=== PATIENT | female | born 1945 | race Caucasian/White ===

== ENCOUNTER 2019-03-12 13:53 | Inpatient (IN) | payer MEDICARE, OTHER ==
[2019-03-12] MEDS ORDERED: Clindamycin/D5W 900 mg/50 ml Premix Bag ONE (14:20)
[2019-03-12] MEDS ORDERED: Fentanyl 100 MCG/2 ML VIAL ONE (14:22)
[2019-03-12 14:49] LABS: Hemoglobin 11.2 g/dL (12.0-16.0); Mean Corpuscular HGB CONC 33.1 g/dL (32.0-36.0); Mean Corpuscular Hemoglobin 29.9 pg (27.0-31.0); Mean Corpuscular Volume 90.3 fL (78.0-98.0); Mean Platelet Volume 7.2 fL (7.4-10.4); Platelet Count 151 thou/uL (130-400); RBC Distribution Width 12.4 % (11.5-14.5); Red Blood Cell (RBC) Count 3.76 mill/uL (4.20-5.40); White Blood Cell (WBC) Count 11.6 thou/uL (4.8-10.8)
--- NOTE | 2019-03-12 15:05 | CT ---
EXAM: CT right ankle and foot PROVIDED CLINICAL HISTORY: Swelling FINDINGS: There is no evidence for fracture or other acute osseous abnormality. Alignment appears anatomic. Staci nt spaces appear preserved. Nonspecific reticulation of the subcutaneous adipose layer circumferentially about the foot. Correlate with concerns for cellulitis. Evaluation for abscess is l imited in the absence of IV contrast. IMPRESSION: No evidence for an acute osseous abnormality.
[2019-03-12 15:11] LABS: ALT (SGPT) 45 U/L (8-55); AST (SGOT) 39 U/L (5-34); Albumin 3.8 g/dL (3.4-4.8); Alkaline Phosphatase 132 U/L (40-150); Anion Gap 12 mmol/L (10-20); BUN (Urea Nitrogen) 9 mg/dL (9.8-20.1); Bilirubin, Total 0.5 mg/dL (0.2-1.2); Calc. Creatinine Clearance 0 mL/min (70-130); Calcium 9.5 mg/dL (7.8-10.44); Carbon Dioxide 26 mmol/L (23-31); Chloride 103 mmol/L (98-107); Estimated GFR-MDRD 78; Globulin 3.1 g/dL (2.4-3.5); Glucose 110 mg/dL (83-110); Potassium 3.6 mmol/L (3.5-5.1); Protein, Total 6.9 g/dL (6.0-8.3); Sodium 137 mmol/L (136-145)
[2019-03-12 15:13] LABS: Band 25 % (5-11); Lymphocytes 5 % (21-51); MDiff Complete? YES; Monocytes 6 % (0-10); Neutrophil 64 % (42-75); Platelet Morphology Comment Appears Adequate; RBC Morphology Normal
[2019-03-12 15:43] LABS: Bilirubin Negative (Negative); Blood, Urine Trace (Negative); Clarity Clear (Clear); Glucose, Urine (Dipstick) Normal (Negative); Leukocyte 75 Leu/uL (Negative); Mucous/LPF Rare LPF (<2+); Nitrite Negative (Negative); Protein, Urine (Dipstick) 20 mg/dL (Neg-Trace); RBC/HPF 0-3 HPF (0-3); Urobilinogen Normal mg/dL (Less than 2)
[2019-03-12 15:50] LABS: Bacteria/HPF Rare-Few HPF (None Seen)
[2019-03-12] MEDS ORDERED: Ondansetron PF 4 MG/2 ML Vial IVP PRN (16:40)
[2019-03-12] MEDS ORDERED: Sodium Chloride 0.9% 1,000 ML IV SCH (16:40)
[2019-03-12] MEDS ORDERED: Ondansetron ODT 4 MG TAB SL PRN (16:40)
[2019-03-12] MEDS ORDERED: Fentanyl 100 MCG/2 ML VIAL SLOW IVP PRN (16:41)
[2019-03-12] MEDS ORDERED: Ibuprofen 200 MG TAB PO SCH (20:45)
[2019-03-12] MEDS ORDERED: Acetaminophen 650 MG Suppository PR PRN (20:49)
[2019-03-12] MEDS: Morphine 2 MG/ML SYRINGE SLOW IVP PRN (21:07)
[2019-03-12] MEDS: Clindamycin/D5W 900 MG in Premix Bag 1 BAG IVPB SCH (21:10)
[2019-03-13] MEDS ORDERED: Sodium Chloride 0.9% 1,000 ML IV SCH ×3 (00:30→09:45)
[2019-03-13] MEDS: Piperacillin/Tazobactam 4.5 GM in Sodium Chloride 0.9% 100 ML IVPB SCH ×3 (01:28→16:22)
[2019-03-13] MEDS ORDERED: Vancomycin HCl 1 GM in Premix Bag 1 BAG IVPB SCH (02:00)
[2019-03-13] MEDS: traMADol HCl 50 MG TAB PO PRN ×4 (02:07→20:20)
[2019-03-13] MEDS: Sodium Chloride 0.9% 1,000 ML IV SCH ×2 (02:50→07:45)
--- NOTE | 2019-03-13 04:32 | HP ---
PRIMARY CARE DOCTOR: Dr. Jorgensen CODE STATUS: Full code. TIME OF EVALUATION: 8 p.m. CHIEF COMPLAINT: Pain in the right foot. HISTORY OF PRESENT ILLNESS: This is a 73 years old female patient with past medical history of no significant comorbidities other than arthritis. The patient came to the hospital after having severe right foot pain starting about a week ago and has been gradually getting worse with no clear triggers, no alleviating factors, associated with redness in the dorsal area of the right foot. The pain became so severe that she was unable to bear pressure. The patient has no significant excoriation or laceration of the skin in that area. REVIEW OF SYSTEMS: All other systems were reviewed and negative except for the findings mentioned above. PAST MEDICAL HISTORY: As mentioned in the HPI and no significant one. KNOWN ALLERGIES: Reaction to Goldvein. REPORTED MEDICATIONS: The patient takes no specific medications. FAMILY HISTORY: Reviewed and noncontributory for current presentation. PHYSICAL EXAMINATION: VITAL SIGNS: On presentation, blood pressure 118/61, heart rate 80, respiratory rate is 16, temperature 98.5, pain was 10/10, oxygen saturation was 99% on room air. GENERAL APPEARANCE: The patient is alert, oriented, no acute distress. HEENT: Eyes, normal conjunctivae. Moist oral mucosa. Anicteric. No JVD. RESPIRATORY: Bilateral air entry. No rales. No wheezes. Symmetric expansion. CARDIOVASCULAR: Normal rate, regular rhythm. No murmurs. No edema. ABDOMEN: Soft. Normal bowel sounds. MUSCULOSKELETAL: Baseline range of motion and strength except for the right lower extremity, the patient has severe pain being unable to walk. Symptoms started in the dorsal area of the right foot; however, it has extended to the right hip and there is also redness, tumefaction. SKIN: Warm and intact. No pallor. No rash. No redness except for the findings mentioned in the musculoskeletal. Capillary refill seems to be intact. NEURO: No evidence of any new focal weakness. Cranial nerves seems to be intact. PSYCH: The patient is in good mood. No anxiety. Optimal judgment. IMAGING STUDIES: Lower extremity CT showed no evidence of an acute osseus abnormality. Labs were reviewed. The patient has a white count of 11.6, hemoglobin 11.2, MCV 90.3, platelet count 151. Chemistry; sodium 137, potassium 3.6, chloride 103, anion gap 12, BUN 9, creatinine 0.73, GFR 78, glucose 110, lactic acid 0.9, calcium 9.5, total bilirubin 0.5, AST 39, ALT 45, alkaline phosphatase 132. C-reactive protein 20.25, serum total protein 6.9, albumin 3.8, globulin 3.1, albumin globulin ratio is 1.2. Urine was done and was positive with white count 7 to 10. ASSESSMENT AND PLAN: The patient will be placed in the hospital with following medical problems; 1. Right lower extremity cellulitis with redness, tenderness, decreased range of motion. The extremity is warm. The patient has been started on antibiotics. We will continue for now. We will monitor pain management. The patient is needing opioids for optimal control given the severity of pain. 2. Normocytic anemia, unclear etiology. Hemoglobin is 11, seems to be stable. We will monitor. No need for any acute intervention at this point. 3. Possible urinary tract infection. The patient has positive urine. The patient is receiving antibiotics. We will monitor cultures and treat accordingly. 4. History of arthritis. Reconcile home medications. 5. Deep venous thrombosis prophylaxis. Job ID: [id number]
[2019-03-13 05:19] LABS: Band 17 % (5-11); Hemoglobin 9.7 g/dL (12.0-16.0); Lymphocytes 9 % (21-51); MDiff Complete? YES; Mean Corpuscular HGB CONC 33.5 g/dL (32.0-36.0); Mean Corpuscular Hemoglobin 30.2 pg (27.0-31.0); Mean Corpuscular Volume 90.3 fL (78.0-98.0); Mean Platelet Volume 7.5 fL (7.4-10.4); Monocytes 5 % (0-10); Neutrophil 68 % (42-75); Platelet Count 127 thou/uL (130-400); Platelet Morphology Comment Appears Decreased; RBC Distribution Width 12.4 % (11.5-14.5); RBC Morphology Normal
[2019-03-13 05:29] LABS: Anion Gap 11 mmol/L (10-20); BUN (Urea Nitrogen) 9 mg/dL (9.8-20.1); Calc. Creatinine Clearance 70 mL/min (70-130); Calcium 8.1 mg/dL (7.8-10.44); Carbon Dioxide 23 mmol/L (23-31); Chloride 106 mmol/L (98-107); Estimated GFR-MDRD 78; Glucose 124 mg/dL (83-110); Potassium 3.2 mmol/L (3.5-5.1); Sodium 137 mmol/L (136-145)
[2019-03-13] MEDS: Clindamycin/D5W 900 MG in Premix Bag 1 BAG IVPB SCH ×2 (06:02→16:22)
[2019-03-13] MEDS ORDERED: Pharmacy to Dose 1 EACH VANCOMYCIN IVPB PRN (07:06)
[2019-03-13] MEDS: Morphine 2 MG/ML SYRINGE SLOW IVP PRN ×2 (07:43→14:08)
[2019-03-13] MEDS: Enoxaparin Sodium 40 MG/0.4 ML SYRINGE SC SCH (07:45)
[2019-03-13] MEDS ORDERED: Prevnar 13-Val Conj/PF 0.5 ML SYRINGE IM ONE (09:00)
[2019-03-13] MEDS ORDERED: Potassium Chloride 20 MEQ TAB PO SCH (09:00)
--- NOTE | 2019-03-13 09:26 | PRG ---
DATE OF SERVICE: 03/13/2019 SUBJECTIVE: The patient is seen and examined at bedside. She is hypotensive. Her systolic blood pressure is around 90. She received second bolus of IV fluids just now and she is positive for gram-positive cocci in 2/2 blood cultures. OBJECTIVE: VITAL SIGNS: Blood pressure is 90/58, pulse is 84, temperature is 98, respirations 16, and O2 saturation is 91% on room air. GENERAL: She looks palish. She complains about the right foot pain. HEENT: Her head is atraumatic and normocephalic. Eyes are PERRLA. Sclerae are nonicteric. Oral mucosa is slightly dry. NECK: Supple. LUNGS: Clear. HEART: S1 and S2 normal. No S3. No S4. ABDOMEN: Soft, nontender, and obese. EXTREMITIES: Right foot, the dorsal part is somewhat erythematous, swollen and very tender to touch. Also, she complains about the pain in the right hip area. NEUROLOGICAL: She follows my commands. She moves all 4 extremities. There is no any motor or sensory deficits. LABORATORY DATA: Labs showed white count of 11.0, hemoglobin 9.7, hematocrit 28.9, platelet count is 127,000, bands 17, down from 25. Sodium of 137, potassium 3.2, chloride 106, CO2 of 23, BUN 9, creatinine 0.73, glucose 124, and calcium 8.1. Microbiology, 2/2 blood cultures, gram-positive cocci. IMPRESSION AND PLAN: 1. Hypotension in the setting of positive blood cultures with gram-positive cocci. Hallucis suspicious for sepsis, most likely streptococcal from the right foot cellulitis as a source. We are going to move her to [facility], give her additional bolus of normal saline. Continue her antibiotics, which is vancomycin, Zosyn, and clindamycin for now. 2. Hypokalemia. We will replace that. 3. Normocytic anemia. 4. Possible urinary tract infection. We do not have cultures back yet. We will continue antibiotics for now. Job ID: [id number]
[2019-03-13 09:39] LABS: #Lymphocytes 0.7 thou/uL (1.20-3.40); #Monocytes 0.7 thou/uL (0.11-0.59); #Neutrophils 10.6 thou/uL (1.40-6.50); %Basophils 0.1 % (0.0-1.0); %Eosinophils 0.2 % (0.0-10.0); %Lymphocytes 5.9 % (21.0-51.0); %Monocytes 5.6 % (0.0-10.0); %Neutrophils 88.2 % (42.0-75.0); Hemoglobin 9.7 g/dL (12.0-16.0); Mean Corpuscular Hemoglobin 30.2 pg (27.0-31.0); Mean Corpuscular Volume 91.4 fL (78.0-98.0); Mean Platelet Volume 7.2 fL (7.4-10.4); Platelet Count 125 thou/uL (130-400); RBC Distribution Width 12.3 % (11.5-14.5); Red Blood Cell (RBC) Count 3.23 mill/uL (4.20-5.40); White Blood Cell (WBC) Count 12.1 thou/uL (4.8-10.8)
[2019-03-13] MEDS: Vancomycin HCl 1.5 GM in Sodium Chloride 0.9% 250 ML 300 ML IVPB SCH (13:01)
--- NOTE | 2019-03-13 14:56 | MRI ---
EXAM: MRI right foot with and without IV contrast PROVIDED CLINICAL HISTORY: Severe right foot pain and swelling COMPARISON: None FINDINGS: There is noncircumscribed fluid signal intensity within the subcutaneous adipose layer circumferentia lly about the foot, predominating at the dorsum of the foot and about the lateral malleolus of the ankle. There is no evidence for a focal, rim-enhancing fluid collection to suggest abscess. Regional marrow signal appears normal. No focal concerning regional muscular signal abnormality is ev ident. Alignment appears anatomic. Joint spaces appear preserved. No regional joint effusion is evident. No significant regional tenosynovial fluid. IMPRESSION: No MR evidence for osteomyelitis or focal fluid collection to suggest abscess.
[2019-03-13] MEDS: Acetaminophen 325 MG TAB PO PRN (20:30)
[2019-03-14] MEDS: Piperacillin/Tazobactam 4.5 GM in Sodium Chloride 0.9% 100 ML IVPB SCH ×3 (00:50→18:27)
[2019-03-14] MEDS: Vancomycin HCl 1.5 GM in Sodium Chloride 0.9% 250 ML 300 ML IVPB SCH ×2 (05:52→15:15)
[2019-03-14 06:05] LABS: #Eosinphils 0.1 thou/uL (0.0-0.7); #Lymphocytes 0.9 thou/uL (1.20-3.40); #Monocytes 0.8 thou/uL (0.11-0.59); #Neutrophils 11.9 thou/uL (1.40-6.50); %Basophils 0.1 % (0.0-1.0); %Eosinophils 0.4 % (0.0-10.0); %Lymphocytes 6.7 % (21.0-51.0); %Monocytes 5.5 % (0.0-10.0); %Neutrophils 87.2 % (42.0-75.0); Hemoglobin 9.9 g/dL (12.0-16.0); Mean Corpuscular HGB CONC 33.2 g/dL (32.0-36.0); Mean Corpuscular Hemoglobin 30.2 pg (27.0-31.0); Mean Corpuscular Volume 90.8 fL (78.0-98.0); Mean Platelet Volume 7.1 fL (7.4-10.4); Platelet Count 155 thou/uL (130-400); RBC Distribution Width 12.4 % (11.5-14.5); Red Blood Cell (RBC) Count 3.28 mill/uL (4.20-5.40); White Blood Cell (WBC) Count 13.7 thou/uL (4.8-10.8)
[2019-03-14] MEDS: Sodium Chloride 0.9% 1,000 ML IV SCH ×2 (06:07→21:00)
[2019-03-14 06:24] LABS: ALT (SGPT) 36 U/L (8-55); AST (SGOT) 24 U/L (5-34); Albumin 2.8 g/dL (3.4-4.8); Alkaline Phosphatase 173 U/L (40-150); Anion Gap 9 mmol/L (10-20); BUN (Urea Nitrogen) 8 mg/dL (9.8-20.1); Bilirubin, Total 0.9 mg/dL (0.2-1.2); Calc. Creatinine Clearance 75 mL/min (70-130); Calcium 8.3 mg/dL (7.8-10.44); Carbon Dioxide 23 mmol/L (23-31); Chloride 107 mmol/L (98-107); Estimated GFR-MDRD 84; Globulin 2.6 g/dL (2.4-3.5); Glucose 94 mg/dL (83-110); Potassium 3.4 mmol/L (3.5-5.1); Protein, Total 5.4 g/dL (6.0-8.3); Sodium 136 mmol/L (136-145)
--- NOTE | 2019-03-14 07:29 | PDOC.HOSPP ---
- Subjective Encounter Date: 03/14/19 Encounter Time: 07:27 Subjective: no fever, chills. pain decreased in foot - Objective Vital Signs & Weight: Vital Signs (12 hours) Temp Pulse Ox 03/14/19 07:24 97.5 F L 03/14/19 04:00 97.9 F 03/14/19 00:36 98.1 F 03/13/19 20:00 100.2 F H 90 L Weight Weight 145 lb 15.136 oz Most Recent Monitor Data Heart Rate from ECG 90 NIBP 106/55 NIBP BP-Mean 72 Respiration from ECG 27 SpO2 99 I&O: 03/13/19 03/14/19 03/15/19 06:59 06:59 06:59 Intake Total 2090 Output Total 625 Balance 1465 Result Diagrams: 03/14/19 05:51 03/14/19 05:51 Hospitalist ROS - Medication Medications: Active Medications Generic Name Dose Route Start Last Admin Trade Name Freq PRN Reason Stop Dose Admin Acetaminophen 650 mg 03/12/19 20:49 03/13/19 20:30 Tylenol PO 650 mg Q4H PRN Administration Headache/Fever/Mild Pain (1-3) Enoxaparin Sodium 40 mg 03/13/19 09:00 03/13/19 07:45 Lovenox SC 40 mg 0900 LENORA Administration Piperacillin Sod/Tazobactam 100 mls @ 200 mls/hr 03/13/19 01:00 03/14/19 00: 50 Sod 4.5 gm/ Sodium Chloride IVPB 100 mls 0100,0900,1700 LENORA Administration Sodium Chloride 1,000 mls @ 100 mls/hr 03/13/19 02:15 03/14/19 06:07 Normal Saline 0.9% IV 1,000 mls .Q10H LENORA Administration Vancomycin HCl 1.5 gm/ Sodium 300 mls @ 200 mls/hr 03/13/19 14:00 03/14/19 05 :52 Chloride IVPB Not Given 0200,1400 LENORA Morphine Sulfate 2 mg 03/12/19 20:30 03/13/19 14:08 Morphine SLOW IVP 2 mg Q4H PRN Administration Moderate to Severe Pain (6-10) Sertraline HCl 100 mg 03/12/19 21:00 03/13/19 20:20 Zoloft PO 100 mg HS LENORA Administration Sodium Chloride 10 ml 03/12/19 21:00 03/13/19 20:21 Flush - Normal Saline IVF 10 ml Q12HR LENORA Administration Tramadol HCl 50 mg 03/12/19 20:31 03/13/19 20:20 Ultram PO 50 mg Q6H PRN Administration Mild-Moderate Pain (1-5) - Exam Neck: no JVD Heart: RRR, no murmur Respiratory: CTAB, no wheezes, no rales Gastrointestinal: soft, non-tender, normal bowel sounds Extremities: no edema Extremities - other findings: erythema, warmth R foot Hosp A/P (1) Bacteremia due to Gram-positive bacteria Code(s): R78.81 - BACTEREMIA Status: Acute (2) Cellulitis Code(s): L03.90 - CELLULITIS, UNSPECIFIED Status: Acute Qualifiers: Site of cellulitis: extremity Site of cellulitis of extremity: lower extremity Laterality: right Qualified Code(s): L03.115 - Cellulitis of right lower limb (3) Hypotension Status: Acute Qualifiers: Hypotension type: unspecified hypotension type Qualified Code(s): I95.9 - Hypotension, unspecified (4) Hypokalemia Code(s): E87.6 - HYPOKALEMIA Status: Acute - Plan cont. broad spectrum antibx pendinng sensitivities cont iv fluids relace K+
[2019-03-14] MEDS ORDERED: Potassium Chloride 20 MEQ TAB PO SCH (07:45)
[2019-03-14] MEDS: Enoxaparin Sodium 40 MG/0.4 ML SYRINGE SC SCH (08:44)
[2019-03-14] MEDS: traMADol HCl 50 MG TAB PO PRN ×3 (08:45→20:56)
[2019-03-14 13:42] LABS: Vancomycin, Trough 15.6 ug/mL
--- NOTE | 2019-03-14 22:37 | RAD ---
Exam: Chest one view HISTORY:Dyspnea Comparison: 10/04/2010 FINDINGS: Cardiac silhouette: Normal Aorta: Unremarkable Pulmonary vessels: Normal Costophrenic angles: Obscuration left hemidiaphragm likely due to left-sided pleural effusion LUNGS: Multi focal interstitial and alveolar infiltrates. Pneumothorax: None Osseous abnormalities: None IMPRESSION: 1. Pleural and parenchymal changes left lung base. 2. Multifocal interstitial and alveolar infiltrates which may be due to edema, aspiration or multilob ar pneumonia. Continued surveillance is recommended. Transcribed Date/Time: 03/14/2019 11:04 PM
[2019-03-14] MEDS ORDERED: Furosemide 40 MG/4 ML VIAL SLOW IVP SCH (22:45)
[2019-03-14] MEDS: Acetaminophen 325 MG TAB PO PRN (23:07)
[2019-03-15] MEDS: Piperacillin/Tazobactam 4.5 GM in Sodium Chloride 0.9% 100 ML IVPB SCH ×3 (01:58→17:32)
[2019-03-15] MEDS: Vancomycin HCl 1.5 GM in Sodium Chloride 0.9% 250 ML 300 ML IVPB SCH ×2 (02:39→13:43)
[2019-03-15] MEDS: traMADol HCl 50 MG TAB PO PRN (02:40)
[2019-03-15 05:05] LABS: Anion Gap 12 mmol/L (10-20); BUN (Urea Nitrogen) 6 mg/dL (9.8-20.1); Calc. Creatinine Clearance 80 mL/min (70-130); Calcium 8.7 mg/dL (7.8-10.44); Carbon Dioxide 23 mmol/L (23-31); Chloride 106 mmol/L (98-107); Estimated GFR-MDRD 84; Glucose 108 mg/dL (83-110); Potassium 3.9 mmol/L (3.5-5.1); Sodium 137 mmol/L (136-145)
[2019-03-15] MEDS: Enoxaparin Sodium 40 MG/0.4 ML SYRINGE SC SCH (09:02)
--- NOTE | 2019-03-15 09:16 | PDOC.HOSPP ---
- Subjective Encounter Date: 03/15/19 Encounter Time: 09:07 Subjective: acute sob last PM, on O2 , tachypneic - Objective Vital Signs & Weight: Vital Signs (12 hours) Temp Pulse Ox 03/15/19 08:05 93 L 03/15/19 04:00 95 03/15/19 00:00 98.4 F 92 L Weight Weight 156 lb 12.8 oz Most Recent Monitor Data Heart Rate from ECG 97 NIBP 95/66 NIBP BP-Mean 75 Respiration from ECG 27 SpO2 90 I&O: 03/14/19 03/15/19 03/16/19 06:59 06:59 06:59 Intake Total 1973 2155 Output Total 400 1655 Balance 1573 500 Result Diagrams: 03/14/19 05:51 03/15/19 04:19 Radiology Reviewed by me: Yes (cxr- pulmonary edema) Hospitalist ROS - Medication Medications: Active Medications Generic Name Dose Route Start Last Admin Trade Name Freq PRN Reason Stop Dose Admin Acetaminophen 650 mg 03/12/19 20:49 03/14/19 23:07 Tylenol PO 650 mg Q4H PRN Administration Headache/Fever/Mild Pain (1-3) Enoxaparin Sodium 40 mg 03/13/19 09:00 03/15/19 09:02 Lovenox SC 40 mg 0900 LENORA Administration Piperacillin Sod/Tazobactam 100 mls @ 200 mls/hr 03/13/19 01:00 03/15/19 09: 02 Sod 4.5 gm/ Sodium Chloride IVPB 100 mls 0100,0900,1700 LENORA Administration Vancomycin HCl 1.5 gm/ Sodium 300 mls @ 200 mls/hr 03/13/19 14:00 03/15/19 02 :39 Chloride IVPB 300 mls 0200,1400 LENORA Administration Morphine Sulfate 2 mg 03/12/19 20:30 03/13/19 14:08 Morphine SLOW IVP 2 mg Q4H PRN Administration Moderate to Severe Pain (6-10) Sertraline HCl 100 mg 03/12/19 21:00 03/14/19 20:58 Zoloft PO 100 mg HS LENORA Administration Sodium Chloride 10 ml 03/12/19 21:00 03/15/19 09:02 Flush - Normal Saline IVF 10 ml Q12HR LENORA Administration Tramadol HCl 50 mg 03/12/19 20:31 03/15/19 02:40 Ultram PO 50 mg Q6H PRN Administration Mild-Moderate Pain (1-5) - Exam General Appearance: awake alert Neck: no JVD Heart: RRR Respiratory: rales Respiratory - other findings: diffuse rales Gastrointestinal: soft, normal bowel sounds Extremities: no edema Hosp A/P (1) Acute pulmonary edema Code(s): J81.0 - ACUTE PULMONARY EDEMA Status: Acute (2) Acute respiratory failure with hypoxemia Code(s): J96.01 - ACUTE RESPIRATORY FAILURE WITH HYPOXIA Status: Acute (3) Bacteremia due to Gram-positive bacteria Code(s): R78.81 - BACTEREMIA Status: Acute (4) Cellulitis Code(s): L03.90 - CELLULITIS, UNSPECIFIED Status: Acute Qualifiers: Site of cellulitis: extremity Site of cellulitis of extremity: lower extremity Laterality: right Qualified Code(s): L03.115 - Cellulitis of right lower limb (5) Hypotension Status: Acute Qualifiers: Hypotension type: unspecified hypotension type Qualified Code(s): I95.9 - Hypotension, unspecified (6) Hypokalemia Code(s): E87.6 - HYPOKALEMIA Status: Acute - Plan lasix 40 ivp q 12h; strict I&O, DC iv saline, ECHo patient with no hx heart disease, received large saline load for sepsis. now with acute sob, hypxemia. pt is on broad spectrum antibx
[2019-03-15] MEDS: Polyethylene Glycol 3350 17 GM Packet PO PRN (13:43)
[2019-03-15] MEDS: Furosemide 40 MG/4 ML VIAL SLOW IVP SCH (13:43)
--- NOTE | 2019-03-15 14:36 | CON ---
DATE OF CONSULTATION: 03/15/2019 HISTORY OF PRESENT ILLNESS: Ms. Ann is a 73-year-old female, who started having a right foot pain that progressed to a point where it was intolerable. She said the pain radiated all the way up to her hip. She was admitted with erythema of her foot, felt to be cellulitis. There is still a sharpie caty where the erythema used to be. This has resolved. She was transferred to the intermediate care unit because of hypoxemia. PAST MEDICAL HISTORY: Remarkable only for arthritis. SOCIAL HISTORY: She is a nonsmoker and nondrinker. ALLERGIES: SHE REPORTS ALLERGIES TO [facility]. MEDICATIONS: Prior to admission none. FAMILY HISTORY: Negative for lung disease in early age. REVIEW OF SYSTEMS: 10 point review of systems completed, otherwise negative. PHYSICAL EXAMINATION: GENERAL: She is in no distress. She had face mask oxygen on. VITAL SIGNS: Blood pressure 120/66, heart rate 89, respiratory rates in the teens, oximetry is 97% on 50% face mask. HEENT: Pupils are equal. Sclerae are anicteric. Nose and throat were clear. NECK: Supple. LUNGS: Clear. HEART: Regular rhythm. S1 and S2 are normal. ABDOMEN: Soft and nontender. EXTREMITIES: Without clubbing, cyanosis, or edema. LABORATORY DATA: White count is 11.6 on admission with 25% bands. No manual differential has been done since . No CBC today. Sodium 137, potassium 3.9 , chloride 106, bicarb 23, BUN 6, creatinine 0.68. No blood gas has been done. Chest x-ray shows diffuse interstitial alveolar infiltrates. IMPRESSION: Acute respiratory distress syndrome associated with cellulitis. I am surprised she did not have respiratory distress on admission. She has normal left ventricular systolic function by echocardiogram, which is arguing that this cellulitis has led to noncardiogenic pulmonary edema. She will have a Russell placed today and will be given Lasix and will be watched closely. I doubt her pulmonary abnormalities are secondary to pneumonia. We will follow with the other physicians caring for. I would be worried about necrotizing fasciitis, given the pain on presentation, but given her dramatic clinical improvement, I strongly argues against having her underlying necrotizing fasciitis. This is a 70 minute consult, with greater than 50% of time spent on unit coordinating care. Job ID: [id number] [facility]
--- NOTE | 2019-03-15 14:45 | PDOC.EVN ---
Event Note - Event Note Event Note: ECHO- nl LVEF. sob improved with diuresis. rpt cxr in AM
[2019-03-15] MEDS: Bisacodyl 10 MG SUPP PR PRN (15:02)
[2019-03-16] MEDS: Piperacillin/Tazobactam 4.5 GM in Sodium Chloride 0.9% 100 ML IVPB SCH ×2 (00:22→08:53)
[2019-03-16] MEDS: ALPRAZolam 0.25 MG TAB PO PRN ×2 (00:22→21:32)
[2019-03-16] MEDS: Vancomycin HCl 1.5 GM in Sodium Chloride 0.9% 250 ML 300 ML IVPB SCH (02:08)
[2019-03-16] MEDS: Furosemide 40 MG/4 ML VIAL SLOW IVP SCH ×2 (05:48→14:49)
--- NOTE | 2019-03-16 07:46 | RAD ---
CHEST 1 VIEW: INDICATION: Followup CHF. COMPARISON: Prior exam dated 03/14/2019. FINDINGS: There is some improvement in perihilar airspace opacities likely reflecting some improvement in edema . Bilateral pleural effusions, cardiomegaly, and pulmonary vascular congestion persist, however. No pneumothorax is evident. Osseous structures are unchanged. IMPRESSION: Mild improvement in central edema pattern. Continued followup is recommended. POS: BH
--- NOTE | 2019-03-16 08:48 | PRG ---
DATE OF SERVICE: 03/16/2019 SUBJECTIVE: Adela Ann has no new complaints. OBJECTIVE: VITAL SIGNS: Heart rate is in 80s, blood pressure 116/55, and oximetry is 95% on face mask. LUNGS: Remarkable for fine crackles at her bases. HEART: Regular rhythm. ABDOMEN: Soft with mild tenderness in the left lower quadrant. EXTREMITIES: Without clubbing, cyanosis, or edema. Apparently, she has not had a bowel movement in several days. She did not respond to a laxative yesterday, so I recommended that she get an enema today. Chest radiograph done today still shows diffuse infiltrates, they have not changed much. IMPRESSION AND PLAN: Adult respiratory distress syndrome with cellulitis. She is clinically stable. Her anxiety has prevented weaning to a nasal cannula. She likes having the face mask air. She does have a dilated left atrium and moderate mitral regurgitation, which may be contributing to her radiographic findings. Intake and output are negative 1311. I would recommend repeating a chest x-ray in the morning. She has Lasix ordered again this morning. She will continue with broad antimicrobial coverage. Her erythema of her foot has improved dramatically based on the lines that were drawn, that were marking the margins of her cellulitis. Job ID: [id number]
[2019-03-16] MEDS: Bisacodyl 10 MG SUPP PR PRN (08:52)
[2019-03-16] MEDS: Enoxaparin Sodium 40 MG/0.4 ML SYRINGE SC SCH (08:53)
--- NOTE | 2019-03-16 10:40 | PDOC.HOSPP ---
- Subjective Encounter Date: 03/16/19 Encounter Time: 10:38 Subjective: less sob - Objective Vital Signs & Weight: Vital Signs (12 hours) Temp Pulse Ox 03/16/19 07:46 98 03/16/19 07:33 97.4 F L 03/16/19 07:15 95 03/16/19 04:00 98.6 F 03/16/19 00:00 99.0 F Weight Weight 156 lb 12.8 oz Most Recent Monitor Data Heart Rate from ECG 90 NIBP 110/66 NIBP BP-Mean 80 Respiration from ECG 22 SpO2 92 I&O: 03/15/19 03/16/19 03/17/19 06:59 06:59 06:59 Intake Total 2155 1304 120 Output Total 1655 2615 Balance 500 -1311 120 Result Diagrams: 03/14/19 05:51 03/15/19 04:19 Radiology Reviewed by me: Yes (cxr- pulmonary edema, mildly improved) Hospitalist ROS - Medication Medications: Active Medications Generic Name Dose Route Start Last Admin Trade Name Freq PRN Reason Stop Dose Admin Acetaminophen 650 mg 03/12/19 20:49 03/14/19 23:07 Tylenol PO 650 mg Q4H PRN Administration Headache/Fever/Mild Pain (1-3) Alprazolam 0.25 mg 03/12/19 20:19 03/16/19 00:22 Xanax PO 0.25 mg DAILYPRN PRN Administration Anxiety Bisacodyl 10 mg 03/15/19 14:41 03/16/19 08:52 Dulcolax AR 10 mg DAILYPRN PRN Administration Constipation Enoxaparin Sodium 40 mg 03/13/19 09:00 03/16/19 08:53 Lovenox SC 40 mg 0900 LENORA Administration Furosemide 40 mg 03/15/19 14:00 03/16/19 05:48 Lasix SLOW IVP 40 mg 0600,1400 LENORA Administration Piperacillin Sod/Tazobactam 100 mls @ 200 mls/hr 03/13/19 01:00 03/16/19 08: 53 Sod 4.5 gm/ Sodium Chloride IVPB 100 mls 0100,0900,1700 LENORA Administration Vancomycin HCl 1.5 gm/ Sodium 300 mls @ 200 mls/hr 03/13/19 14:00 03/16/19 02 :08 Chloride IVPB 300 mls 0200,1400 LENORA Administration Morphine Sulfate 2 mg 03/12/19 20:30 03/13/19 14:08 Morphine SLOW IVP 2 mg Q4H PRN Administration Moderate to Severe Pain (6-10) Polyethylene Glycol 17 gm 03/15/19 13:23 03/15/19 13:43 Miralax PO 17 gm DAILYPRN PRN Administration CONSTIPATION Sertraline HCl 100 mg 03/12/19 21:00 03/15/19 21:20 Zoloft PO 100 mg HS LENORA Administration Sodium Chloride 10 ml 03/12/19 21:00 03/16/19 09:03 Flush - Normal Saline IVF 10 ml Q12HR LENORA Administration Tramadol HCl 50 mg 03/12/19 20:31 03/15/19 02:40 Ultram PO 50 mg Q6H PRN Administration Mild-Moderate Pain (1-5) - Exam Neck: no JVD Heart: RRR, no murmur Respiratory - other findings: post rales Gastrointestinal: soft, normal bowel sounds Extremities: no edema Skin - other findings: marked improvement in RLE cellulitis Hosp A/P (1) Acute pulmonary edema Code(s): J81.0 - ACUTE PULMONARY EDEMA Status: Acute (2) Acute respiratory failure with hypoxemia Code(s): J96.01 - ACUTE RESPIRATORY FAILURE WITH HYPOXIA Status: Acute (3) Bacteremia due to Gram-positive bacteria Code(s): R78.81 - BACTEREMIA Status: Acute (4) Cellulitis Code(s): L03.90 - CELLULITIS, UNSPECIFIED Status: Acute Qualifiers: Site of cellulitis: extremity Site of cellulitis of extremity: lower extremity Laterality: right Qualified Code(s): L03.115 - Cellulitis of right lower limb (5) Hypotension Status: Acute Qualifiers: Hypotension type: unspecified hypotension type Qualified Code(s): I95.9 - Hypotension, unspecified (6) Hypokalemia Code(s): E87.6 - HYPOKALEMIA Status: Acute - Plan lasix 40 ivp q 12h;. pt is on broad spectrum antibx, trasition to iv cephtriaxone ECHO- Nl LVEF
[2019-03-16 11:10] LABS: Actual Bicarbonate (HCO3a) 32.1 mEq/L (22-28); Base Excess (BEa) 7.5 mEq/L (-2.0 to +3.0); CO2 Tension 45.9 mmHg (35.0-45.0); Calcium, Ionized 1.15 mmol/L (1.12-1.30); Carboxyhemoglobin (COHb) 0.5 gm% (0.0-3.0); Hemoglobin (Hb) 10.6 g/dL (12.0-16.0); O2 Tension (PaO2) 77.5 mmHg (> 70.0); Potassium - ABG Lab 2.44 mmol/L (3.70-5.30); pH, Arterial 7.46 (7.35-7.45)
[2019-03-16 11:11] LABS: ALV-art Gradient 150.325 (0-20); Puncture Site LB
[2019-03-16] MEDS: cefTRIAXone\\ROCEPHIN 2 GM in Sodium Chloride 0.9% 100 ML IVPB SCH (11:19)
[2019-03-17] MEDS: Morphine 2 MG/ML SYRINGE SLOW IVP PRN (00:03)
[2019-03-17] MEDS: Acetaminophen 325 MG TAB PO PRN ×2 (01:28→20:10)
[2019-03-17] MEDS: Furosemide 40 MG/4 ML VIAL SLOW IVP SCH ×2 (06:15→13:04)
[2019-03-17] MEDS: Enoxaparin Sodium 40 MG/0.4 ML SYRINGE SC SCH (08:48)
--- NOTE | 2019-03-17 09:18 | RAD ---
CHEST 1 VIEW: HISTORY: Shortness of breath. COMPARISON: 03/16/2019 exam. FINDINGS: Heart size appears slightly enlarged. The pulmonary edema changes show improvement. There is still persistent increased density in the bases suggesting effusions. There are some slightly asymmetric right upper lobe parenchymal changes. This may just be the resolving edema. IMPRESSION: Cardiomegaly with resolving interstitial alveolar lung changes suggesting improving edema. Continued followup is recommended. POS: ENMAN[facility]EL
[2019-03-17] MEDS: traMADol HCl 50 MG TAB PO PRN ×2 (10:12→18:45)
--- NOTE | 2019-03-17 10:18 | PDOC.HOSPP ---
- Subjective Encounter Date: 03/17/19 Encounter Time: 10:17 Subjective: uncomfortable, tired of bed - Objective Vital Signs & Weight: Vital Signs (12 hours) Temp Pulse Ox 03/17/19 08:00 99.2 F 03/17/19 07:56 98 03/17/19 06:50 98.7 F 03/17/19 06:32 91 L 03/17/19 03:31 97.2 F L 03/17/19 02:26 93 L 03/16/19 22:46 97.9 F Weight Weight 156 lb 12.8 oz Most Recent Monitor Data Heart Rate from ECG 86 NIBP 108/53 NIBP BP-Mean 71 Respiration from ECG 35 SpO2 99 I&O: 03/16/19 03/17/19 03/18/19 06:59 06:59 06:59 Intake Total 1304 1368 240 Output Total 3842 4160 Balance -0160 -7076 240 Result Diagrams: 03/14/19 05:51 03/15/19 04:19 Radiology Reviewed by me: Yes (cxr-significant clearing of edema) Hospitalist ROS - Medication Medications: Active Medications Generic Name Dose Route Start Last Admin Trade Name Freq PRN Reason Stop Dose Admin Acetaminophen 650 mg 03/12/19 20:49 03/17/19 01:28 Tylenol PO 650 mg Q4H PRN Administration Headache/Fever/Mild Pain (1-3) Alprazolam 0.25 mg 03/12/19 20:19 03/16/19 21:32 Xanax PO 0.25 mg DAILYPRN PRN Administration Anxiety Bisacodyl 10 mg 03/15/19 14:41 03/16/19 08:52 Dulcolax DC 10 mg DAILYPRN PRN Administration Constipation Enoxaparin Sodium 40 mg 03/13/19 09:00 03/17/19 08:48 Lovenox SC 40 mg 0900 LENORA Administration Furosemide 40 mg 03/15/19 14:00 03/17/19 06:15 Lasix SLOW IVP 40 mg 0600,1400 LENORA Administration Ceftriaxone Sodium 2 gm/ 100 mls @ 200 mls/hr 03/16/19 11:00 03/16/19 11:19 Sodium Chloride IVPB 100 mls Q24HR LENORA Administration Morphine Sulfate 2 mg 03/12/19 20:30 03/17/19 00:03 Morphine SLOW IVP 2 mg Q4H PRN Administration Moderate to Severe Pain (6-10) Polyethylene Glycol 17 gm 03/15/19 13:23 03/15/19 13:43 Miralax PO 17 gm DAILYPRN PRN Administration CONSTIPATION Sertraline HCl 100 mg 03/12/19 21:00 03/16/19 20:06 Zoloft PO 100 mg HS LENORA Administration Sodium Chloride 10 ml 03/12/19 21:00 03/17/19 08:49 Flush - Normal Saline IVF 10 ml Q12HR LENORA Administration Tramadol HCl 50 mg 03/12/19 20:31 03/17/19 10:12 Ultram PO 50 mg Q6H PRN Administration Mild-Moderate Pain (1-5) - Exam General Appearance: awake alert Neck: no JVD Heart: RRR Respiratory - other findings: post basilar rales Gastrointestinal: soft, normal bowel sounds Extremities: 1+ LE edema Hosp A/P (1) Acute pulmonary edema Code(s): J81.0 - ACUTE PULMONARY EDEMA Status: Acute (2) Acute respiratory failure with hypoxemia Code(s): J96.01 - ACUTE RESPIRATORY FAILURE WITH HYPOXIA Status: Acute (3) Bacteremia due to Gram-positive bacteria Code(s): R78.81 - BACTEREMIA Status: Acute (4) Cellulitis Code(s): L03.90 - CELLULITIS, UNSPECIFIED Status: Acute Qualifiers: Site of cellulitis: extremity Site of cellulitis of extremity: lower extremity Laterality: right Qualified Code(s): L03.115 - Cellulitis of right lower limb (5) Hypotension Status: Resolved Qualifiers: Hypotension type: unspecified hypotension type Qualified Code(s): I95.9 - Hypotension, unspecified (6) Hypokalemia Code(s): E87.6 - HYPOKALEMIA Status: Resolved - Plan lasix 40 ivp q 12h;. rpt cxr in 2 days move to [facility] cont iv antibs rpt CBC, CMP
[2019-03-17] MEDS: cefTRIAXone\\ROCEPHIN 2 GM in Sodium Chloride 0.9% 100 ML IVPB SCH (10:28)
[2019-03-17 11:53] LABS: #Eosinphils 0.1 thou/uL (0.0-0.7); #Lymphocytes 1.1 thou/uL (1.20-3.40); #Monocytes 0.8 thou/uL (0.11-0.59); #Neutrophils 8.6 thou/uL (1.40-6.50); %Basophils 0.1 % (0.0-1.0); %Eosinophils 1.4 % (0.0-10.0); %Lymphocytes 9.9 % (21.0-51.0); %Monocytes 7.3 % (0.0-10.0); %Neutrophils 81.3 % (42.0-75.0); Hemoglobin 10.7 g/dL (12.0-16.0); Mean Corpuscular Hemoglobin 29.4 pg (27.0-31.0); Mean Corpuscular Volume 89.2 fL (78.0-98.0); Mean Platelet Volume 6.2 fL (7.4-10.4); Platelet Count 286 thou/uL (130-400); RBC Distribution Width 12.6 % (11.5-14.5); Red Blood Cell (RBC) Count 3.64 mill/uL (4.20-5.40); White Blood Cell (WBC) Count 10.6 thou/uL (4.8-10.8)
[2019-03-17 12:16] LABS: ALT (SGPT) 19 U/L (8-55); AST (SGOT) 23 U/L (5-34); Albumin 2.8 g/dL (3.4-4.8); Alkaline Phosphatase 252 U/L (40-110); Anion Gap 13 mmol/L (10-20); BUN (Urea Nitrogen) 11 mg/dL (9.8-20.1); Bilirubin, Total 0.3 mg/dL (0.2-1.2); Calc. Creatinine Clearance 74 mL/min (70-130); Calcium 9.1 mg/dL (7.8-10.44); Carbon Dioxide 37 mmol/L (23-31); Chloride 91 mmol/L (98-107); Estimated GFR-MDRD 77; Globulin 3.4 g/dL (2.4-3.5); Glucose 121 mg/dL (83-110); Protein, Total 6.2 g/dL (6.0-8.3); Sodium 138 mmol/L (136-145)
[2019-03-17 12:21] LABS: Potassium 2.6 mmol/L (3.5-5.1)
[2019-03-17] MEDS ORDERED: Potassium Chloride 20 MEQ TAB PO SCH ×2 (13:00→21:45)
--- NOTE | 2019-03-17 18:03 | PRG ---
DATE OF SERVICE: 03/17/2019 SUBJECTIVE: Ms. Ann did well overnight. She has no complaints. OBJECTIVE: VITAL SIGNS: She is afebrile. Heart rate is 93, respiratory rate is 20, oximetry is 94, and blood pressure 115/54. LUNGS: Clear. HEART: Regular rhythm. ABDOMEN: Soft. LABORATORY DATA: White count 10.6, hemoglobin 10.7, and platelets 286,000. Sodium 138, potassium 3.6, chloride 91, bicarb 37, BUN 11, creatinine 0.74, and glucose 121. IMPRESSION AND PLAN: Cellulitis with adult respiratory distress syndrome, clinically improving. Today's chest radiograph has dramatically improved. She continues broad antimicrobial therapy. She is stable to move out of the intermediate care unit. We will sign off. Job ID: [id number]
[2019-03-17 21:03] LABS: Actual Bicarbonate (HCO3a) 36.8 mEq/L (22-28); Base Excess (BEa) 12.6 mEq/L (-2.0 to +3.0); CO2 Tension 45.6 mmHg (35.0-45.0); Calcium, Ionized 1.11 mmol/L (1.12-1.30); Carboxyhemoglobin (COHb) 0.8 gm% (0.0-3.0); Potassium - ABG Lab 2.73 mmol/L (3.70-5.30); pH, Arterial 7.53 (7.35-7.45)
[2019-03-17 21:05] LABS: O2 Tension (PaO2) 53.5 mmHg (> 70.0)
[2019-03-17] MEDS ORDERED: Potassium Chloride 40 MEQ in Sodium Chloride 0.9% 250 ML 250 ML IVPB SCH (21:45)
[2019-03-18] MEDS: traMADol HCl 50 MG TAB PO PRN ×4 (02:41→23:06)
[2019-03-18] MEDS: ALPRAZolam 0.25 MG TAB PO PRN (03:50)
[2019-03-18 06:00] LABS: Albumin 2.9 g/dL (3.4-4.8); Anion Gap 15 mmol/L (10-20); BUN (Urea Nitrogen) 12 mg/dL (9.8-20.1); BUN/Creatinine Ratio 17.65; Calc. Creatinine Clearance 80 mL/min (70-130); Carbon Dioxide 33 mmol/L (23-31); Chloride 97 mmol/L (98-107); Estimated GFR-MDRD 84; Glucose 105 mg/dL (83-110); Magnesium 1.6 mg/dL (1.6-2.6); Phosphorus 3.3 mg/dL (2.3-4.7); Potassium 3.5 mmol/L (3.5-5.1); Sodium 141 mmol/L (136-145)
[2019-03-18] MEDS ORDERED: Magnesium 2 GM/50 ML 2 GM in Premix Bag 1 BAG IVPB SCH (06:45)
[2019-03-18] MEDS ORDERED: Potassium Chloride 20 MEQ TAB PO SCH (09:00)
[2019-03-18] MEDS: Enoxaparin Sodium 40 MG/0.4 ML SYRINGE SC SCH (09:39)
[2019-03-18] MEDS: Furosemide 40 MG/4 ML VIAL SLOW IVP SCH (09:40)
[2019-03-18] MEDS: cefTRIAXone\\ROCEPHIN 2 GM in Sodium Chloride 0.9% 100 ML IVPB SCH (11:58)
[2019-03-18] MEDS ORDERED: Ketorolac Tromethamine 30 MG/ML VIAL IVP SCH (12:15)
--- NOTE | 2019-03-18 19:10 | PDOC.HOSPP ---
- Subjective Encounter Date: 03/18/19 Subjective: report pain to the right leg, that was there prior to admission and persists; tolerating oral intake; no events overnight - Objective Vital Signs & Weight: Vital Signs (12 hours) Temp Pulse Resp BP Pulse Ox 03/18/19 18:28 94 18 96 03/18/19 14:53 99.1 F 95 28 H 111/54 L 97 03/18/19 14:42 91 28 H 96 03/18/19 12:17 98.7 F 92 24 H 117/56 L 95 03/18/19 11:47 93 L 03/18/19 10:49 90 20 92 L Weight Weight 156 lb 12.8 oz Most Recent Monitor Data Heart Rate from ECG 87 NIBP 123/59 NIBP BP-Mean 80 Respiration from ECG 35 SpO2 98 I&O: 03/17/19 03/18/19 03/19/19 06:59 06:59 06:59 Intake Total 1368 1120 940 Output Total 3550 2300 1650 Balance -2182 -1180 -710 Result Diagrams: 03/17/19 11:47 03/18/19 04:54 Additional Labs: Accuchecks 03/18/19 03/17/19 16:54 20:11 POC Glucose 120 H 154 H Hospitalist ROS - Review of Systems Constitutional: denies: fever, chills Respiratory: denies: shortness of breath Gastrointestinal: denies: abdominal pain Musculoskeletal: reports: leg pain - Medication Medications: Active Medications Generic Name Dose Route Start Last Admin Trade Name Freq PRN Reason Stop Dose Admin Acetaminophen 650 mg 03/12/19 20:49 03/17/19 20:10 Tylenol PO 650 mg Q4H PRN Administration Headache/Fever/Mild Pain (1-3) Albuterol/Ipratropium 3 ml 03/17/19 20:19 03/17/19 20:28 Duoneb NEB 3 ml Q6H PRN Administration SOB &/or Wheezing Albuterol/Ipratropium 3 ml 03/17/19 22:30 03/18/19 18:28 Duoneb NEB 3 ml [id number] LENORA Administration Alprazolam 0.25 mg 03/12/19 20:19 03/18/19 03:50 Xanax PO 0.25 mg DAILYPRN PRN Administration Anxiety Bisacodyl 10 mg 03/15/19 14:41 03/16/19 08:52 Dulcolax [place] 10 mg DAILYPRN PRN Administration Constipation Enoxaparin Sodium 40 mg 03/13/19 09:00 03/18/19 09:39 Lovenox SC 40 mg 0900 LENORA Administration Furosemide 40 mg 03/18/19 09:00 03/18/19 09:40 Lasix SLOW IVP 40 mg DAILY LENORA Administration Ceftriaxone Sodium 2 gm/ 100 mls @ 200 mls/hr 03/16/19 11:00 03/18/19 11:58 Sodium Chloride IVPB 100 mls Q24HR LENORA Administration Morphine Sulfate 2 mg 03/12/19 20:30 03/17/19 00:03 Morphine SLOW IVP 2 mg Q4H PRN Administration Moderate to Severe Pain (6-10) Polyethylene Glycol 17 gm 03/15/19 13:23 03/15/19 13:43 Miralax PO 17 gm DAILYPRN PRN Administration CONSTIPATION Sertraline HCl 100 mg 03/12/19 21:00 03/17/19 21:50 Zoloft PO 100 mg HS LENORA Administration Sodium Chloride 10 ml 03/12/19 21:00 03/18/19 09:40 Flush - Normal Saline IVF 10 ml Q12HR LENORA Administration Tramadol HCl 50 mg 03/12/19 20:31 03/18/19 15:58 Ultram PO 50 mg Q6H PRN Administration Mild-Moderate Pain (1-5) - Exam General Appearance: NAD Eye: anicteric sclera ENT: normocephalic atraumatic, moist mucosa Neck: supple, no JVD Heart: RRR, no murmur Respiratory: CTAB, no wheezes, no rales Gastrointestinal: soft, non-tender, non-distended, normal bowel sounds Extremities: no clubbing, no edema Skin: normal turgor, no lesions Skin - other findings: mild erythema to right foot Neurological: cranial nerve grossly intact, no focal deficits Musculoskeletal: normal tone, normal strength Psychiatric: normal affect, normal behavior, A&O x 3 Hosp A/P (1) Acute respiratory failure with hypoxemia Code(s): J96.01 - ACUTE RESPIRATORY FAILURE WITH HYPOXIA Status: Acute Plan: off oxygen, will continue with nebs as needed (2) Bacteremia due to Gram-positive bacteria Code(s): R78.81 - BACTEREMIA Status: Acute Plan: continue current IV antibiotics (3) Cellulitis Code(s): L03.90 - CELLULITIS, UNSPECIFIED Status: Acute Qualifiers: Site of cellulitis: extremity Site of cellulitis of extremity: lower extremity Laterality: right Qualified Code(s): L03.115 - Cellulitis of right lower limb Plan: continue current iv antibiotics
[2019-03-19] MEDS: ALPRAZolam 0.25 MG TAB PO PRN ×2 (00:35→23:02)
[2019-03-19] MEDS: Morphine 2 MG/ML SYRINGE SLOW IVP PRN ×2 (00:37→06:07)
[2019-03-19] MEDS: traMADol HCl 50 MG TAB PO PRN ×3 (05:21→18:25)
[2019-03-19] MEDS: Furosemide 40 MG/4 ML VIAL SLOW IVP SCH (08:27)
[2019-03-19] MEDS: Enoxaparin Sodium 40 MG/0.4 ML SYRINGE SC SCH (08:27)
[2019-03-19] MEDS: Acetaminophen 325 MG TAB PO PRN ×3 (11:19→23:02)
[2019-03-19] MEDS: cefTRIAXone\\ROCEPHIN 2 GM in Sodium Chloride 0.9% 100 ML IVPB SCH (11:53)
[2019-03-19] MEDS ORDERED: Ketorolac Tromethamine 30 MG/ML VIAL IVP ONE (12:00)
[2019-03-19] MEDS: Polyethylene Glycol 3350 17 GM Packet PO PRN (15:51)
--- NOTE | 2019-03-19 15:52 | PDOC.HOSPP ---
- Subjective Encounter Date: 03/19/19 Subjective: report right leg pain; tolerating oral intake; slept well last night, unsure if toradol helped because she fell asleep - Objective Vital Signs & Weight: Vital Signs (12 hours) Temp Pulse Resp BP Pulse Ox 03/19/19 11:16 97.6 F 94 20 99/54 L 97 03/19/19 10:17 88 18 94 L 03/19/19 08:25 98.0 F 78 20 111/52 L 95 03/19/19 06:48 96 03/19/19 06:47 92 20 96 Weight Weight 156 lb 12.8 oz Most Recent Monitor Data Heart Rate from ECG 87 NIBP 123/59 NIBP BP-Mean 80 Respiration from ECG 35 SpO2 98 I&O: 03/18/19 03/19/19 03/20/19 06:59 06:59 06:59 Intake Total 1120 1178 Output Total 2300 1950 Balance -1375 -062 Result Diagrams: 03/17/19 11:47 03/18/19 04:54 Additional Labs: Accuchecks 03/18/19 16:54 POC Glucose 120 H Hospitalist ROS - Review of Systems Respiratory: denies: shortness of breath Cardiovascular: denies: chest pain, palpitations Gastrointestinal: denies: nausea, vomiting, abdominal pain Musculoskeletal: reports: leg pain - Medication Medications: Active Medications Generic Name Dose Route Start Last Admin Trade Name Freq PRN Reason Stop Dose Admin Acetaminophen 650 mg 03/12/19 20:49 03/19/19 11:19 Tylenol PO 650 mg Q4H PRN Administration Headache/Fever/Mild Pain (1-3) Albuterol/Ipratropium 3 ml 03/17/19 20:19 03/17/19 20:28 Duoneb NEB 3 ml Q6H PRN Administration SOB &/or Wheezing Albuterol/Ipratropium 3 ml 03/17/19 22:30 03/19/19 14:27 Duoneb NEB Not Given [id number] LENORA Alprazolam 0.25 mg 03/12/19 20:19 03/19/19 00:35 Xanax PO 0.25 mg DAILYPRN PRN Administration Anxiety Bisacodyl 10 mg 03/15/19 14:41 03/16/19 08:52 Dulcolax [place] 10 mg DAILYPRN PRN Administration Constipation Enoxaparin Sodium 40 mg 03/13/19 09:00 03/19/19 08:27 Lovenox SC 40 mg 0900 LENORA Administration Furosemide 40 mg 03/18/19 09:00 03/19/19 08:27 Lasix SLOW IVP 40 mg DAILY LENORA Administration Ceftriaxone Sodium 2 gm/ 100 mls @ 200 mls/hr 03/16/19 11:00 03/19/19 11:53 Sodium Chloride IVPB 100 mls Q24HR LENORA Administration Morphine Sulfate 2 mg 03/12/19 20:30 03/19/19 06:07 Morphine SLOW IVP 2 mg Q4H PRN Administration Moderate to Severe Pain (6-10) Polyethylene Glycol 17 gm 03/15/19 13:23 03/15/19 13:43 Miralax PO 17 gm DAILYPRN PRN Administration CONSTIPATION Sertraline HCl 100 mg 03/12/19 21:00 03/18/19 20:06 Zoloft PO 100 mg HS LENORA Administration Sodium Chloride 10 ml 03/12/19 21:00 03/19/19 08:27 Flush - Normal Saline IVF 10 ml Q12HR LENORA Administration Tramadol HCl 50 mg 03/12/19 20:31 03/19/19 11:18 Ultram PO 50 mg Q6H PRN Administration Mild-Moderate Pain (1-5) - Exam General Appearance: NAD, awake alert Eye: PERRL, anicteric sclera ENT: normocephalic atraumatic, no oropharyngeal lesions, moist mucosa Neck: supple, symmetric, no JVD, no thyromegaly, no lymphadenopathy, no carotid bruit Heart: RRR, no murmur, no gallops, no rubs, normal peripheral pulses Respiratory: CTAB, no wheezes, no rales, no ronchi, normal chest expansion, no tachypnea, normal percussion Gastrointestinal: soft, non-tender, non-distended, normal bowel sounds, no palpable masses, no hepatomegaly, no splenomegaly, no bruit Extremities: no cyanosis, no clubbing, no edema Skin: normal turgor, no lesions, no rashes Skin - other findings: mild right foot erythema Neurological: cranial nerve grossly intact, normal sensation to touch, no weakness, no focal deficits, no new deficit Musculoskeletal: normal tone, normal strength, no muscle wasting Psychiatric: normal affect, normal behavior, A&O x 3 Hosp A/P (1) Bacteremia due to Gram-positive bacteria Code(s): R78.81 - BACTEREMIA Status: Acute Plan: continue present IV antibiotics and transition to oral (2) Cellulitis Code(s): L03.90 - CELLULITIS, UNSPECIFIED Status: Acute Qualifiers: Site of cellulitis: extremity Site of cellulitis of extremity: lower extremity Laterality: right Qualified Code(s): L03.115 - Cellulitis of right lower limb Plan: transition to oral medications (3) Acute respiratory failure with hypoxemia Code(s): J96.01 - ACUTE RESPIRATORY FAILURE WITH HYPOXIA Status: Acute Plan: resolved; now oxygenation well on room air
--- NOTE | 2019-03-19 18:08 | ULT ---
RIGHT LOWER EXTREMITY VENOUS DUPLEX EXAM: 03/19/19 HISTORY: Right leg pain and swelling. Real time color Doppler evaluation of the right lower extremity was performed from groin to calf. Thi s includes evaluation of the common femoral, superficial and profunda femoral, saphenous, popliteal a nd posterior tibial veins. This shows normal compressibility and augmentation. IMPRESSION: No evidence of DVT of the right lower extremity. POS: ENMANUEL
[2019-03-19] MEDS: Heparin 5,000 UNITS/ML VIAL SC SCH (19:10)
[2019-03-19] MEDS: Ketorolac Tromethamine 30 MG/ML VIAL IVP PRN (21:47)
[2019-03-20] MEDS: traMADol HCl 50 MG TAB PO PRN ×4 (00:22→20:20)
[2019-03-20] MEDS: Ketorolac Tromethamine 30 MG/ML VIAL IVP PRN ×2 (03:14→20:21)
[2019-03-20 05:46] LABS: #Eosinphils 0.2 thou/uL (0.0-0.7); #Lymphocytes 1.8 thou/uL (1.20-3.40); #Monocytes 0.4 thou/uL (0.11-0.59); #Neutrophils 4.9 thou/uL (1.40-6.50); %Basophils 0.3 % (0.0-1.0); %Lymphocytes 24.5 % (21.0-51.0); %Monocytes 5.3 % (0.0-10.0); %Neutrophils 66.8 % (42.0-75.0); Hemoglobin 9.8 g/dL (12.0-16.0); Mean Corpuscular HGB CONC 32.3 g/dL (32.0-36.0); Mean Corpuscular Hemoglobin 29.7 pg (27.0-31.0); Mean Corpuscular Volume 91.8 fL (78.0-98.0); Mean Platelet Volume 6.1 fL (7.4-10.4); Platelet Count 313 thou/uL (130-400); RBC Distribution Width 12.7 % (11.5-14.5); Red Blood Cell (RBC) Count 3.29 mill/uL (4.20-5.40); White Blood Cell (WBC) Count 7.3 thou/uL (4.8-10.8)
[2019-03-20 05:53] LABS: Anion Gap 13 mmol/L (10-20); BUN (Urea Nitrogen) 15 mg/dL (9.8-20.1); Calc. Creatinine Clearance 83 mL/min (70-130); Calcium 9.2 mg/dL (7.8-10.44); Carbon Dioxide 34 mmol/L (23-31); Chloride 94 mmol/L (98-107); Estimated GFR-MDRD 87; Glucose 110 mg/dL (83-110); Potassium 3.6 mmol/L (3.5-5.1); Sodium 137 mmol/L (136-145); Uric Acid 3.1 mg/dL (2.6-6.0)
[2019-03-20] MEDS: Enoxaparin Sodium 40 MG/0.4 ML SYRINGE SC SCH ×2 (08:32→09:34)
[2019-03-20] MEDS: Furosemide 40 MG/4 ML VIAL SLOW IVP SCH (08:34)
[2019-03-20] MEDS: Heparin 5,000 UNITS/ML VIAL SC SCH ×3 (08:35→21:51)
[2019-03-20] MEDS: Polyethylene Glycol 3350 17 GM Packet PO PRN (08:52)
[2019-03-20] MEDS: Acetaminophen 325 MG TAB PO PRN ×4 (09:33→20:18)
[2019-03-20] MEDS: cefTRIAXone\\ROCEPHIN 2 GM in Sodium Chloride 0.9% 100 ML IVPB SCH (11:41)
--- NOTE | 2019-03-20 21:09 | PDOC.HOSPP ---
- Subjective Encounter Date: 03/20/19 Subjective: reports she feels better; tolerating oral intake; US doppler of right lower ext was negative for DVT; no events overnight - Objective Vital Signs & Weight: Vital Signs (12 hours) Temp Pulse Pulse Pulse Resp BP BP 03/20/19 18:30 90 16 03/20/19 15:54 84 16 03/20/19 15:25 80 86 122/60 118/62 03/20/19 15:08 97.9 F 84 27 H 03/20/19 11:27 97.6 F 83 19 BP Pulse Ox 03/20/19 18:30 99 03/20/19 15:54 03/20/19 15:25 03/20/19 15:08 128/59 L 95 03/20/19 11:27 116/58 L 92 L Weight Weight 156 lb 12.8 oz Most Recent Monitor Data Heart Rate from ECG 87 NIBP 123/59 NIBP BP-Mean 80 Respiration from ECG 35 SpO2 98 I&O: 03/19/19 03/20/19 03/21/19 06:59 06:59 06:59 Intake Total 1178 1560 1270 Output Total 1950 800 850 Balance -772 760 420 Result Diagrams: 03/20/19 04:32 03/20/19 04:32 Hospitalist ROS - Review of Systems Respiratory: denies: shortness of breath Cardiovascular: denies: chest pain Musculoskeletal: reports: leg pain - Medication Medications: Active Medications Generic Name Dose Route Start Last Admin Trade Name Freq PRN Reason Stop Dose Admin Acetaminophen 650 mg 03/12/19 20:49 03/20/19 20:18 Tylenol PO 650 mg Q4H PRN Administration Headache/Fever/Mild Pain (1-3) Albuterol/Ipratropium 3 ml 03/17/19 20:19 03/17/19 20:28 Duoneb NEB 3 ml Q6H PRN Administration SOB &/or Wheezing Albuterol/Ipratropium 3 ml 03/17/19 22:30 03/20/19 18:30 Duoneb NEB 3 ml [id number] LENORA Administration Alprazolam 0.25 mg 03/12/19 20:19 03/19/19 23:02 Xanax PO 0.25 mg DAILYPRN PRN Administration Anxiety Bisacodyl 10 mg 03/15/19 14:41 03/16/19 08:52 Dulcolax [place] 10 mg DAILYPRN PRN Administration Constipation Furosemide 40 mg 03/18/19 09:00 03/20/19 08:34 Lasix SLOW IVP 40 mg DAILY LENORA Administration Heparin Sodium (Porcine) 5,000 units 03/19/19 21:00 03/20/19 09:31 Heparin SC Not Given BID LENORA Ceftriaxone Sodium 2 gm/ 100 mls @ 200 mls/hr 03/16/19 11:00 03/20/19 11:41 Sodium Chloride IVPB 100 mls Q24HR LENORA Administration Morphine Sulfate 2 mg 03/12/19 20:30 03/19/19 06:07 Morphine SLOW IVP 2 mg Q4H PRN Administration Moderate to Severe Pain (6-10) Polyethylene Glycol 17 gm 03/15/19 13:23 03/20/19 08:52 Miralax PO 17 gm DAILYPRN PRN Administration CONSTIPATION Sertraline HCl 100 mg 03/12/19 21:00 03/20/19 20:21 Zoloft PO 100 mg HS LENORA Administration Sodium Chloride 10 ml 03/12/19 21:00 03/20/19 20:22 Flush - Normal Saline IVF 10 ml Q12HR LENORA Administration Tramadol HCl 50 mg 03/12/19 20:31 03/20/19 20:20 Ultram PO 50 mg Q6H PRN Administration Mild-Moderate Pain (1-5) - Exam General Appearance: NAD, awake alert Eye: PERRL, anicteric sclera ENT: normocephalic atraumatic, no oropharyngeal lesions, moist mucosa Neck: supple, symmetric, no JVD, no thyromegaly, no lymphadenopathy, no carotid bruit Heart: RRR, no murmur, no gallops, no rubs, normal peripheral pulses Respiratory: CTAB, no wheezes, no rales, no ronchi, normal chest expansion, no tachypnea, normal percussion Gastrointestinal: soft, non-tender, non-distended, normal bowel sounds, no palpable masses, no hepatomegaly, no splenomegaly, no bruit Extremities: no cyanosis, no clubbing, no edema Skin: normal turgor, no lesions, no rashes Neurological: cranial nerve grossly intact, normal sensation to touch, no weakness, no focal deficits, no new deficit Musculoskeletal: normal tone, normal strength, no muscle wasting Psychiatric: normal affect, normal behavior, A&O x 3 Hosp A/P (1) Bacteremia due to Gram-positive bacteria Code(s): R78.81 - BACTEREMIA Status: Acute Plan: repeat blood cultures show no growth; (2) Cellulitis Code(s): L03.90 - CELLULITIS, UNSPECIFIED Status: Acute Qualifiers: Site of cellulitis: extremity Site of cellulitis of extremity: lower extremity Laterality: right Qualified Code(s): L03.115 - Cellulitis of right lower limb Plan: continue with rocephin; now resolvving (3) Acute respiratory failure with hypoxemia Code(s): J96.01 - ACUTE RESPIRATORY FAILURE WITH HYPOXIA Status: Acute Plan: resolved - Plan will benefit from SNF; continue physical and occupational therapy
[2019-03-21] MEDS: Acetaminophen 325 MG TAB PO PRN ×3 (00:33→09:07)
[2019-03-21] MEDS: ALPRAZolam 0.25 MG TAB PO PRN ×2 (01:27→20:24)
[2019-03-21] MEDS: traMADol HCl 50 MG TAB PO PRN ×3 (01:27→15:39)
[2019-03-21] MEDS: Heparin 5,000 UNITS/ML VIAL SC SCH ×2 (09:05→20:02)
[2019-03-21] MEDS: Furosemide 40 MG/4 ML VIAL SLOW IVP SCH (09:08)
[2019-03-21] MEDS: cefTRIAXone\\ROCEPHIN 2 GM in Sodium Chloride 0.9% 100 ML IVPB SCH (12:16)
[2019-03-21] MEDS ORDERED: Morphine 4 MG/ML VIAL SLOW IVP SCH (13:15)
--- NOTE | 2019-03-21 17:15 | PDOC.HOSPP ---
- Subjective Encounter Date: 03/21/19 Subjective: reports pain to right knee; no other events overnight; working with physical therapy; - Objective Vital Signs & Weight: Vital Signs (12 hours) Temp Pulse Resp BP Pulse Ox 03/21/19 15:31 99.2 F 97 19 114/66 95 03/21/19 14:28 86 16 96 03/21/19 12:16 98.4 F 90 18 127/62 95 03/21/19 10:31 91 L 03/21/19 10:30 79 18 91 L 03/21/19 07:41 98.7 F 102 H 22 H 152/67 H 96 03/21/19 07:40 96 03/21/19 06:59 86 20 91 L Weight Weight 156 lb 12.8 oz Most Recent Monitor Data Heart Rate from ECG 87 NIBP 123/59 NIBP BP-Mean 80 Respiration from ECG 35 SpO2 98 I&O: 03/20/19 03/21/19 03/22/19 06:59 06:59 06:59 Intake Total 1560 1780 Output Total 800 1650 Balance 760 130 Result Diagrams: 03/20/19 04:32 03/20/19 04:32 Hospitalist ROS - Review of Systems Respiratory: denies: shortness of breath Gastrointestinal: denies: nausea, vomiting, abdominal pain Musculoskeletal: reports: leg pain - Medication Medications: Active Medications Generic Name Dose Route Start Last Admin Trade Name Freq PRN Reason Stop Dose Admin Acetaminophen 650 mg 03/12/19 20:49 03/21/19 09:07 Tylenol PO 650 mg Q4H PRN Administration Headache/Fever/Mild Pain (1-3) Albuterol/Ipratropium 3 ml 03/17/19 20:19 03/17/19 20:28 Duoneb NEB 3 ml Q6H PRN Administration SOB &/or Wheezing Albuterol/Ipratropium 3 ml 03/17/19 22:30 03/21/19 14:28 Duoneb NEB 3 ml [id number] LENORA Administration Alprazolam 0.25 mg 03/12/19 20:19 03/21/19 01:27 Xanax PO 0.25 mg DAILYPRN PRN Administration Anxiety Bisacodyl 10 mg 03/15/19 14:41 03/16/19 08:52 Dulcolax [place] 10 mg DAILYPRN PRN Administration Constipation Furosemide 40 mg 03/18/19 09:00 03/21/19 09:08 Lasix SLOW IVP 40 mg DAILY LENORA Administration Heparin Sodium (Porcine) 5,000 units 03/19/19 21:00 03/21/19 09:05 Heparin SC Not Given BID [facility] Ceftriaxone Sodium 2 gm/ 100 mls @ 200 mls/hr 03/16/19 11:00 03/21/19 12:16 Sodium Chloride IVPB 100 mls Q24HR LENORA Administration Morphine Sulfate 2 mg 03/12/19 20:30 03/19/19 06:07 Morphine SLOW IVP 2 mg Q4H PRN Administration Moderate to Severe Pain (6-10) Polyethylene Glycol 17 gm 03/15/19 13:23 03/20/19 08:52 Miralax PO 17 gm DAILYPRN PRN Administration CONSTIPATION Sertraline HCl 100 mg 03/12/19 21:00 03/20/19 20:21 Zoloft PO 100 mg HS LENORA Administration Sodium Chloride 10 ml 03/12/19 21:00 03/21/19 09:08 Flush - Normal Saline IVF 10 ml Q12HR LENORA Administration Tramadol HCl 50 mg 03/12/19 20:31 03/21/19 15:39 Ultram PO 50 mg Q6H PRN Administration Mild-Moderate Pain (1-5) - Exam General Appearance: NAD, awake alert Eye: PERRL, anicteric sclera ENT: normocephalic atraumatic, no oropharyngeal lesions, moist mucosa Neck: supple, symmetric, no JVD, no thyromegaly, no lymphadenopathy, no carotid bruit Heart: RRR, no murmur, no gallops, no rubs, normal peripheral pulses Respiratory: CTAB, no wheezes, no rales, no ronchi, normal chest expansion, no tachypnea, normal percussion Gastrointestinal: soft, non-tender, non-distended, normal bowel sounds, no palpable masses, no hepatomegaly, no splenomegaly, no bruit Extremities: no cyanosis, no clubbing, no edema Skin: normal turgor, no lesions, no rashes Skin - other findings: no erythema Neurological: cranial nerve grossly intact, normal sensation to touch, no weakness, no focal deficits, no new deficit Musculoskeletal: normal tone, normal strength, diffuse muscle atrophy Psychiatric: normal affect, normal behavior, A&O x 3 Hosp A/P (1) Bacteremia due to Gram-positive bacteria Code(s): R78.81 - BACTEREMIA Status: Acute Plan: repeat blood cultures show no growth thus far; continue IV antibiotics until final cultures have resulted (2) Cellulitis Code(s): L03.90 - CELLULITIS, UNSPECIFIED Status: Acute Qualifiers: Site of cellulitis: extremity Site of cellulitis of extremity: lower extremity Laterality: right Qualified Code(s): L03.115 - Cellulitis of right lower limb Plan: resolving on Iv antibiotics (3) Acute respiratory failure with hypoxemia Code(s): J96.01 - ACUTE RESPIRATORY FAILURE WITH HYPOXIA Status: Acute - Plan will benefit from SNF; continue physical and occupational therapy
[2019-03-21] MEDS ORDERED: HYDROmorphone 0.5 MG/0.5 ML SYRINGE SLOW IVP SCH (18:45)
[2019-03-21] MEDS ORDERED: Ketorolac Tromethamine 30 MG/ML VIAL IVP SCH (19:15)
[2019-03-22] MEDS: traMADol HCl 50 MG TAB PO PRN ×4 (00:47→20:29)
[2019-03-22] MEDS ORDERED: ALPRAZolam 0.25 MG TAB PO SCH (03:00)
[2019-03-22] MEDS ORDERED: Ketorolac Tromethamine 10 MG TAB PO SCH (03:00)
[2019-03-22] MEDS: Furosemide 40 MG/4 ML VIAL SLOW IVP SCH (08:09)
[2019-03-22] MEDS: Heparin 5,000 UNITS/ML VIAL SC SCH ×2 (08:09→20:30)
--- NOTE | 2019-03-22 11:48 | PQF ---
CLINICAL DOCUMENTATION IMPROVEMENT CLARIFICATION FORM: ICD-10 Updated PLEASE DO AN ADDENDUM TO THE PROGRESS NOTE WITH ANY DOCUMENTATION UPDATES OR ADDITIONS AND CARRY THROUGH TO DC SUMMARY. THANK YOU. DATE: 03/22/2019; 03/23/2019 ATTN: Dr. Valencia Please exercise your independent, professional judgment in responding to the clarification form. Clinical indicators are provided on the bottom of this form for your review Please check appropriate box(s) to clarify if the following diagnosis has been ruled in or ruled out: SEPSIS [ XX ] Ruled in diagnosis [ ] Continue to treat [ XX ] Resolved [ ] Ruled out diagnosis [ ] Cannot rule out diagnosis [ ] Other diagnosis [ ] Unable to determine In addition, please specify: Present on Admission (POA): [ XX ] Yes [ ] No [ ] Unable to determine For continuity of documentation, please document condition throughout progress notes and discharge summary. Thank You. CLINICAL INDICATORS - SIGNS / SYMPTOMS / LABS PN 03/13: Her systolic BP is around 90. She received 2nd bolus of IV fluids just now and she is positive for gram-positive cocci in 2/2 blood cultures. suspicious for sepsis, most likely streptococcal from the r foot cellulitis as a source pn 03/15: Acute respiratory failure with hypoxemia Bacteremia due to Gram-positive bacteria Cellulitis Hypotension PN 03/21: Bacteremia due to Gram-positive bacteria RISKS: H&P 03/12: 73 yo. R lower extremity cellulitis. Normocytic anemia, unclear etiology, Hx of arthritis. TREATMENT: PN 03/13: move to IMCU, give additional bolus of normal saline. Continue antibiotics, which is vancomycin, Zosyn, and clindamycin for now PN 03/15: received large saline load for sepsis MAR: Order 03/16: IV Rocephin 2gm IV q 24hr Thank you, Mariluz (This form is maintained as a part of the permanent medical record) 2014 [employer]. All Rights Reserved Mariluz Duenas RN, BSN [email or web address] Office: [phone] [facility]ENTER[facility]y
[2019-03-22] MEDS: cefTRIAXone\\ROCEPHIN 2 GM in Sodium Chloride 0.9% 100 ML IVPB SCH (12:07)
[2019-03-22] MEDS: ALPRAZolam 0.25 MG TAB PO PRN ×2 (14:38→20:34)
--- NOTE | 2019-03-22 17:52 | PDOC.HOSPP ---
- Subjective Subjective: Seen and examined. Patient states that she is having severe knee pain, reassured her that osteoarthritis may cause pains from time to time and she should work with physical therapy more and get out of bed more. Knee exam is benign. Negative imaging. - Objective Vital Signs & Weight: Vital Signs (12 hours) Temp Pulse Resp BP BP Pulse Ox 03/22/19 16:00 98.4 F 86 16 131/83 91 L 03/22/19 11:39 97.9 F 77 17 116/56 L 96 03/22/19 10:41 86 16 91 L 03/22/19 08:00 94 L 03/22/19 07:46 98.3 F 91 18 120/57 L 94 L 03/22/19 06:25 91 L 03/22/19 06:23 81 20 78 L Weight Weight 141 lb 4.8 oz Most Recent Monitor Data Heart Rate from ECG 87 NIBP 123/59 NIBP BP-Mean 80 Respiration from ECG 35 SpO2 98 I&O: 03/21/19 03/22/19 03/23/19 06:59 06:59 06:59 Intake Total 1780 1140 720 Output Total 1650 1825 Balance 130 -685 720 Result Diagrams: 03/20/19 04:32 03/20/19 04:32 Radiology Reviewed by me: Yes (US LE) Hospitalist ROS - Review of Systems All other systems reviewed; all pertinent +/- noted in HPI/Subj - Medication Medications: Active Medications Generic Name Dose Route Start Last Admin Trade Name Freq PRN Reason Stop Dose Admin Acetaminophen 650 mg 03/12/19 20:49 03/21/19 09:07 Tylenol PO 650 mg Q4H PRN Administration Headache/Fever/Mild Pain (1-3) Albuterol/Ipratropium 3 ml 03/17/19 20:19 03/17/19 20:28 Duoneb NEB 3 ml Q6H PRN Administration SOB &/or Wheezing Albuterol/Ipratropium 3 ml 03/17/19 22:30 03/22/19 14:43 Duoneb NEB Not Given [id number] LENORA Alprazolam 0.25 mg 03/22/19 08:49 03/22/19 14:38 Xanax PO 0.25 mg BID PRN Administration Anxiety Bisacodyl 10 mg 03/15/19 14:41 03/16/19 08:52 Dulcolax [place] 10 mg DAILYPRN PRN Administration Constipation Furosemide 40 mg 03/18/19 09:00 03/22/19 08:09 Lasix SLOW IVP 40 mg DAILY LENORA Administration Heparin Sodium (Porcine) 5,000 units 03/19/19 21:00 03/22/19 08:09 Heparin SC 5,000 units BID LENORA Administration Ceftriaxone Sodium 2 gm/ 100 mls @ 200 mls/hr 03/16/19 11:00 03/22/19 12:07 Sodium Chloride IVPB 100 mls Q24HR LENORA Administration Polyethylene Glycol 17 gm 03/15/19 13:23 03/20/19 08:52 Miralax PO 17 gm DAILYPRN PRN Administration CONSTIPATION Sodium Chloride 10 ml 03/12/19 21:00 03/22/19 08:36 Flush - Normal Saline IVF 10 ml Q12HR LENORA Administration Tramadol HCl 50 mg 03/12/19 20:31 03/22/19 14:38 Ultram PO 50 mg Q6H PRN Administration Mild-Moderate Pain (1-5) - Exam General Appearance: NAD, awake alert Eye: anicteric sclera ENT: no oropharyngeal lesions, moist mucosa Neck: supple, symmetric, no lymphadenopathy, no carotid bruit Heart: no murmur, no gallops, no rubs Respiratory: CTAB, no wheezes, no rales Gastrointestinal: soft, non-tender, non-distended, normal bowel sounds, no guarding, no rigidity Extremities: no edema Skin: no lesions, no rashes Neurological: cranial nerve grossly intact, normal sensation to touch Musculoskeletal: generalized weakness Psychiatric: normal affect, A&O x 3 Hosp A/P (1) Acute pulmonary edema Code(s): J81.0 - ACUTE PULMONARY EDEMA Status: Resolved (2) Acute respiratory failure with hypoxemia Code(s): J96.01 - ACUTE RESPIRATORY FAILURE WITH HYPOXIA Status: Resolved (3) Bacteremia due to Gram-positive bacteria Code(s): R78.81 - BACTEREMIA Status: Resolved (4) Cellulitis Code(s): L03.90 - CELLULITIS, UNSPECIFIED Status: Resolved Qualifiers: Site of cellulitis: extremity Site of cellulitis of extremity: lower extremity Laterality: right Qualified Code(s): L03.115 - Cellulitis of right lower limb (5) Hypokalemia Code(s): E87.6 - HYPOKALEMIA Status: Resolved (6) Hypotension Status: Resolved Qualifiers: Hypotension type: unspecified hypotension type Qualified Code(s): I95.9 - Hypotension, unspecified (7) Knee pain Code(s): M25.569 - PAIN IN UNSPECIFIED KNEE Status: Acute (8) Osteoarthritis Code(s): M19.90 - UNSPECIFIED OSTEOARTHRITIS, UNSPECIFIED SITE Status: Acute - Plan Plan: medical unit telemetry discharge planning to rehabilitation facility blood has been sterilized on repeat blood cultures cellulitis resolved imaging negative for lower extremity, osteoarthritis related chronic pains continue home medications as able anxiety not controlled, increase Zoloft patient requesting higher doses of Lorazepam
[2019-03-22] MEDS: Acetaminophen 325 MG TAB PO PRN (23:59)
[2019-03-23] MEDS ORDERED: ALPRAZolam 0.25 MG TAB PO SCH (01:45)
[2019-03-23] MEDS ORDERED: Ibuprofen 600 MG TAB PO SCH (01:45)
[2019-03-23] MEDS: traMADol HCl 50 MG TAB PO PRN ×3 (04:01→22:14)
[2019-03-23] MEDS: ALPRAZolam 0.25 MG TAB PO PRN (09:28)
[2019-03-23] MEDS: Heparin 5,000 UNITS/ML VIAL SC SCH ×2 (09:28→21:14)
[2019-03-23] MEDS: Furosemide 40 MG/4 ML VIAL SLOW IVP SCH (09:28)
[2019-03-23] MEDS: Polyethylene Glycol 3350 17 GM Packet PO PRN (11:25)
[2019-03-23] MEDS: cefTRIAXone\\ROCEPHIN 2 GM in Sodium Chloride 0.9% 100 ML IVPB SCH (11:58)
[2019-03-23 12:32] VITALS: BMI 24.6
--- NOTE | 2019-03-23 13:30 | PDOC.HOSPP ---
- Subjective Subjective: Seen and examined. Anxiety not controlled, she and her family think this is worsening her pain. States that she is having severe knee and back pain. Patient states that her anxiety gets so bad she cant talk sometimes. Spent 30 minutes out of bed yesterday per patient. - Objective Vital Signs & Weight: Vital Signs (12 hours) Temp Pulse Resp BP BP BP Pulse Ox 03/23/19 11:39 98.1 F 92 18 109/53 L 91 L 03/23/19 10:39 96 16 96 03/23/19 08:00 94 L 03/23/19 07:42 97.5 F L 88 16 110/52 L 94 L 03/23/19 06:43 83 16 85 L 03/23/19 04:00 98.8 F 90 16 112/53 L 98 03/23/19 02:01 98 03/23/19 01:30 94 18 116/55 L Weight Admit Weight 145 lb 15.136 oz Weight 143 lb 9.6 oz Most Recent Monitor Data Heart Rate from ECG 87 NIBP 123/59 NIBP BP-Mean 80 Respiration from ECG 35 SpO2 98 I&O: 03/22/19 03/23/19 03/24/19 06:59 06:59 06:59 Intake Total 1140 1560 390 Output Total 1825 1650 Balance -685 -90 390 Result Diagrams: 03/20/19 04:32 03/20/19 04:32 Hospitalist ROS - Review of Systems All other systems reviewed; all pertinent +/- noted in HPI/Subj - Medication Medications: Active Medications Generic Name Dose Route Start Last Admin Trade Name Freq PRN Reason Stop Dose Admin Acetaminophen 650 mg 03/12/19 20:49 03/22/19 23:59 Tylenol PO 650 mg Q4H PRN Administration Headache/Fever/Mild Pain (1-3) Albuterol/Ipratropium 3 ml 03/17/19 20:19 03/17/19 20:28 Duoneb NEB 3 ml Q6H PRN Administration SOB &/or Wheezing Albuterol/Ipratropium 3 ml 03/17/19 22:30 03/23/19 10:39 Duoneb NEB 3 ml [id number] LENORA Administration Alprazolam 0.25 mg 03/22/19 08:49 03/23/19 09:28 Xanax PO 0.25 mg BID PRN Administration Anxiety Bisacodyl 10 mg 03/15/19 14:41 03/16/19 08:52 Dulcolax [place] 10 mg DAILYPRN PRN Administration Constipation Furosemide 40 mg 03/18/19 09:00 03/23/19 09:28 Lasix SLOW IVP 40 mg DAILY LENORA Administration Heparin Sodium (Porcine) 5,000 units 03/19/19 21:00 03/23/19 09:28 Heparin SC 5,000 units BID LENORA Administration Ceftriaxone Sodium 2 gm/ 100 mls @ 200 mls/hr 03/16/19 11:00 03/23/19 11:58 Sodium Chloride IVPB 100 mls Q24HR LENORA Administration Polyethylene Glycol 17 gm 03/15/19 13:23 03/23/19 11:25 Miralax PO 17 gm DAILYPRN PRN Administration CONSTIPATION Sertraline HCl 150 mg 03/22/19 08:47 03/22/19 20:30 Zoloft PO 150 mg HS LENORA Administration Sodium Chloride 10 ml 03/12/19 21:00 03/23/19 09:28 Flush - Normal Saline IVF 10 ml Q12HR LENORA Administration Tramadol HCl 50 mg 03/12/19 20:31 03/23/19 04:01 Ultram PO 50 mg Q6H PRN Administration Mild-Moderate Pain (1-5) - Exam General Appearance: NAD, awake alert Eye: PERRL, anicteric sclera ENT: no oropharyngeal lesions, moist mucosa Neck: supple, symmetric, no lymphadenopathy Heart: no murmur, no gallops, no rubs Respiratory: CTAB, no wheezes, no rales, no ronchi Gastrointestinal: soft, non-tender, non-distended, no guarding, no rigidity Extremities: no edema Skin: no lesions, no rashes Neurological: cranial nerve grossly intact, normal sensation to touch, no focal deficits Musculoskeletal: generalized weakness Musculoskeletal - other findings: no effusions or errythema of the knees - states severe pain Psychiatric: normal affect, A&O x 3 Hosp A/P (1) Acute pulmonary edema Code(s): J81.0 - ACUTE PULMONARY EDEMA Status: Resolved (2) Acute respiratory failure with hypoxemia Code(s): J96.01 - ACUTE RESPIRATORY FAILURE WITH HYPOXIA Status: Resolved (3) Bacteremia due to Gram-positive bacteria Code(s): R78.81 - BACTEREMIA Status: Resolved (4) Cellulitis Code(s): L03.90 - CELLULITIS, UNSPECIFIED Status: Resolved Qualifiers: Site of cellulitis: extremity Site of cellulitis of extremity: lower extremity Laterality: right Qualified Code(s): L03.115 - Cellulitis of right lower limb (5) Hypokalemia Code(s): E87.6 - HYPOKALEMIA Status: Resolved (6) Hypotension Status: Resolved Qualifiers: Hypotension type: unspecified hypotension type Qualified Code(s): I95.9 - Hypotension, unspecified (7) Knee pain Code(s): M25.569 - PAIN IN UNSPECIFIED KNEE Status: Acute (8) Osteoarthritis Code(s): M19.90 - UNSPECIFIED OSTEOARTHRITIS, UNSPECIFIED SITE Status: Acute - Plan Plan: medical unit telemetry discharge planning to rehabilitation facility blood has been sterilized on repeat blood cultures cellulitis resolved imaging negative for lower extremity, osteoarthritis related chronic pains continue home medications as able anxiety not controlled, start Risperidone for better control, continue Zoloft, Lorazepam PRN sparingly patient requesting higher doses of Lorazepam and pain medications
[2019-03-23] MEDS: risperiDONE 1 MG TAB PO SCH (21:13)
[2019-03-23] MEDS: Acetaminophen 325 MG TAB PO PRN (21:16)
[2019-03-24] MEDS: traMADol HCl 50 MG TAB PO PRN ×3 (03:51→21:23)
[2019-03-24] MEDS: Acetaminophen 325 MG TAB PO PRN ×3 (05:52→18:30)
[2019-03-24] MEDS: risperiDONE 1 MG TAB PO SCH ×2 (08:59→21:24)
[2019-03-24] MEDS: Heparin 5,000 UNITS/ML VIAL SC SCH ×2 (09:00→21:29)
[2019-03-24] MEDS: Furosemide 40 MG/4 ML VIAL SLOW IVP SCH (09:00)
[2019-03-24] MEDS: cefTRIAXone\\ROCEPHIN 2 GM in Sodium Chloride 0.9% 100 ML IVPB SCH (11:47)
--- NOTE | 2019-03-24 15:48 | PDOC.HOSPP ---
- Subjective Subjective: Seen and examined. Anxiety is better controlled on current regimen. Still with pain issues though these are better as the anxiety has been better controlled. - Objective Vital Signs & Weight: Vital Signs (12 hours) Temp Pulse Resp BP BP Pulse Ox 03/24/19 14:20 78 16 96 03/24/19 12:00 97.8 F 92 16 105/52 L 94 L 03/24/19 10:06 88 16 95 03/24/19 08:59 95 03/24/19 07:31 98.5 F 101 H 18 106/50 L 95 03/24/19 06:38 95 03/24/19 06:37 95 16 95 03/24/19 04:00 98.5 F 87 16 124/85 96 Weight Admit Weight 145 lb 15.136 oz Weight 143 lb 9.6 oz Most Recent Monitor Data Heart Rate from ECG 87 NIBP 123/59 NIBP BP-Mean 80 Respiration from ECG 35 SpO2 98 I&O: 03/23/19 03/24/19 03/25/19 06:59 06:59 06:59 Intake Total 1560 992 Output Total 1650 1250 Balance -90 -258 Result Diagrams: 03/20/19 04:32 03/20/19 04:32 Hospitalist ROS - Review of Systems All other systems reviewed; all pertinent +/- noted in HPI/Subj - Medication Medications: Active Medications Generic Name Dose Route Start Last Admin Trade Name Freq PRN Reason Stop Dose Admin Acetaminophen 650 mg 03/12/19 20:49 03/24/19 14:13 Tylenol PO 650 mg Q4H PRN Administration Headache/Fever/Mild Pain (1-3) Albuterol/Ipratropium 3 ml 03/17/19 20:19 03/17/19 20:28 Duoneb NEB 3 ml Q6H PRN Administration SOB &/or Wheezing Albuterol/Ipratropium 3 ml 03/17/19 22:30 03/24/19 14:20 Duoneb NEB 3 ml [id number] LENORA Administration Alprazolam 0.25 mg 03/22/19 08:49 03/23/19 09:28 Xanax PO 0.25 mg BID PRN Administration Anxiety Bisacodyl 10 mg 03/15/19 14:41 03/16/19 08:52 Dulcolax [place] 10 mg DAILYPRN PRN Administration Constipation Furosemide 40 mg 03/18/19 09:00 03/24/19 09:00 Lasix SLOW IVP 40 mg DAILY LENORA Administration Heparin Sodium (Porcine) 5,000 units 03/19/19 21:00 03/24/19 09:00 Heparin SC 5,000 units BID LENORA Administration Ceftriaxone Sodium 2 gm/ 100 mls @ 200 mls/hr 03/16/19 11:00 03/24/19 11:47 Sodium Chloride IVPB 100 mls Q24HR LENORA Administration Polyethylene Glycol 17 gm 03/15/19 13:23 03/23/19 11:25 Miralax PO 17 gm DAILYPRN PRN Administration CONSTIPATION Risperidone 0.5 mg 03/23/19 21:00 03/24/19 08:59 Risperidone PO 0.5 mg BID LENORA Administration Sertraline HCl 150 mg 03/22/19 08:47 03/23/19 21:12 Zoloft PO 150 mg HS LENORA Administration Sodium Chloride 10 ml 03/12/19 21:00 03/24/19 09:00 Flush - Normal Saline IVF 10 ml Q12HR LENORA Administration Tramadol HCl 50 mg 03/12/19 20:31 03/24/19 10:05 Ultram PO 50 mg Q6H PRN Administration Mild-Moderate Pain (1-5) - Exam General Appearance: NAD, awake alert Eye: anicteric sclera ENT: normocephalic atraumatic, moist mucosa Neck: supple, symmetric, no lymphadenopathy Heart: no murmur, no gallops, no rubs Respiratory: CTAB, no wheezes, no rales, no ronchi Gastrointestinal: soft, non-tender, non-distended, no guarding, no rigidity Extremities: no edema Skin: no lesions, no rashes Neurological: cranial nerve grossly intact, normal sensation to touch, no focal deficits Musculoskeletal: no muscle wasting, generalized weakness Psychiatric: normal affect, A&O x 3 Hosp A/P (1) Acute pulmonary edema Code(s): J81.0 - ACUTE PULMONARY EDEMA Status: Resolved (2) Acute respiratory failure with hypoxemia Code(s): J96.01 - ACUTE RESPIRATORY FAILURE WITH HYPOXIA Status: Resolved (3) Bacteremia due to Gram-positive bacteria Code(s): R78.81 - BACTEREMIA Status: Resolved (4) Cellulitis Code(s): L03.90 - CELLULITIS, UNSPECIFIED Status: Resolved Qualifiers: Site of cellulitis: extremity Site of cellulitis of extremity: lower extremity Laterality: right Qualified Code(s): L03.115 - Cellulitis of right lower limb (5) Hypokalemia Code(s): E87.6 - HYPOKALEMIA Status: Resolved (6) Hypotension Status: Resolved Qualifiers: Hypotension type: unspecified hypotension type Qualified Code(s): I95.9 - Hypotension, unspecified (7) Knee pain Code(s): M25.569 - PAIN IN UNSPECIFIED KNEE Status: Acute (8) Osteoarthritis Code(s): M19.90 - UNSPECIFIED OSTEOARTHRITIS, UNSPECIFIED SITE Status: Acute - Plan Plan: medical unit telemetry discharge planning to rehabilitation facility vs SNF blood has been sterilized on repeat blood cultures A full 10 day course of ABX will finish tomorrow and patient will not need oral ABX on D/c cellulitis resolved imaging negative for lower extremity, osteoarthritis related chronic pains continue home medications as able anxiety and mood disorder better controlled, on Risperidone, Zoloft, and Lorazepam PRN sparingly
[2019-03-25] MEDS: traMADol HCl 50 MG TAB PO PRN ×3 (03:41→16:04)
[2019-03-25] MEDS: Acetaminophen 325 MG TAB PO PRN (04:45)
[2019-03-25] MEDS: ALPRAZolam 0.25 MG TAB PO PRN (07:38)
[2019-03-25] MEDS: Furosemide 40 MG/4 ML VIAL SLOW IVP SCH (09:46)
[2019-03-25] MEDS: Heparin 5,000 UNITS/ML VIAL SC SCH (09:46)
[2019-03-25] MEDS: risperiDONE 1 MG TAB PO SCH (09:46)
[2019-03-25] MEDS: cefTRIAXone\\ROCEPHIN 2 GM in Sodium Chloride 0.9% 100 ML IVPB SCH (09:47)
[2019-03-25 16:03] VITALS: TEMP 97.9
[2019-03-25 16:37] VITALS: BP 129/63
--- NOTE | 2019-03-26 01:31 | DIS ---
DATE OF ADMISSION: 03/12/2019 DATE OF DISCHARGE: 03/25/2019 REASON FOR HOSPITALIZATION: Lower extremity cellulitis. SIGNIFICANT FINDINGS: The patient was found to have lower extremity cellulitis in addition to urinary tract infection and was placed on broad-spectrum antibiotics with good improvement of symptoms. CONDITION ON DISCHARGE: Stable. SPECIFIC INSTRUCTIONS FOR THE PATIENT/FAMILY: 1. The patient is recommended to take all medications as directed, to be re-evaluated by admitting physician. 2. The patient recommended to work with Physical Therapy and Occupational Therapy for a full and complete recovery to regain her independence. 3. The patient is recommended to return to acute care hospital immediately if signs or symptoms return, worsen, or any other new symptoms occur. DISCHARGE MEDICATIONS: 1. Aspirin 81 mg one tablet p.o. daily. 2. Tramadol 50 mg one tablet q.6 hours p.r.n. pain. 3. Risperidone 0.5 mg one tablet p.o. b.i.d. 4. Sertraline 150 mg one tablet p.o. at bedtime. 5. Polyethylene glycol 17 g p.o. daily p.r.n. constipation. 6. Ipratropium/albuterol DuoNeb therapy 3 mL nebulizer solution q.4 hours p.r.n. shortness of breath. 7. Heparin 5000 units subcutaneous injection b.i.d. 8. Dulcolax 10 mg per rectal p.r.n. constipation. 9. Tylenol regular strength 650 mg p.o. q.4 hours p.r.n. pain or fever. HOSPITAL COURSE: Ms. Ann is a pleasant 73-year-old female, who presented to the [facility] on 03/12/2019, please see full history and physical, progress notes, and all consultation notes for details. The patient with lower extremity cellulitis and the patient was admitted to the intensive care unit, please see full consultation from hand dry cleaner for details. For cellulitis, the patient was started on broad-spectrum antibiotics and had blood and urine cultures obtained. Please see full blood cultures and urine cultures for details. The patient was found to have positive blood cultures with Streptococcus pyogenes from 03/12/2019 in addition to abnormal urinalysis. The patient had repeat blood cultures on 03/19/2019 - please see full report for details. The patient demonstrated no growth on these blood cultures and the blood was confirmed to be sterilized. The patient completed a full course of broad-spectrum antibiotics and she was deescalated to focused antibiotics. The patient completed a full course of these antibiotics on 03/25/2019. The patient recommended safe for discharge by Pulmonary/Critical Care and recommended to follow up with admitting physician at group home facility for future care. The patient had an extensive workup of the lower extremity, including MRI of the lower extremity, please see full report for details, there was no MRI evidence of osteomyelitis or focal fluid collection to suggest abscess in the right lower extremity. The patient also had CT scan of the lower extremity, please see full report for details, there was no evidence of acute osseous abnormalities. The patient had ultrasound of the lower extremity, please see full report for details, there is no evidence of DVT. The patient also had an echocardiogram, please see full report for details, the echocardiogram demonstrated a preserved ejection fraction of 55% to 60% with moderate mitral regurgitation and [id number] tricuspid regurgitation. The patient breathing well on room air and able to participate some with physical therapy was recommended safe for discharge. However, discharge home was not feasible at this time. The patient recommended safe for discharge to the group home facility for continuation of inpatient physical therapy and occupational therapy treatment. The patient is recommended to take all medications as directed, to be re-evaluated by admitting physician at group home facility. The patient is recommended to follow up with all of her specialists in the outpatient setting as directed. The patient is recommended to return to acute care hospital immediately if signs or symptoms return, worsen, or any other new symptoms occur. Greater than 38 minutes spent coordinating care and discharge process for this patient. Job ID: [id number]
== END 2019-03-25 20:00 | DRG 871 ==
LOC: ERS 13:53 → T4-A 15:31 → IMCU/EMU 03-13 10:39 → 2NO 03-17 14:08
PROVIDERS: ADMIT Internal Medicine Nephrology; ATTEND Internal Medicine Nephrology
PROC: 0T9B70Z Drainage of Bladder with Drainage Device, Via Natural or Artificial Opening (ICD-10-PCS; principal; 2019-03-15)
DX: A40.0 Sepsis due to streptococcus, group A (principal); J81.0 Acute pulmonary edema; J96.01 Acute respiratory failure with hypoxia; L03.115 Cellulitis of right lower limb; N39.0 Urinary tract infection, site not specified; D64.9 Anemia, unspecified; I08.1 Rheumatic disorders of both mitral and tricuspid valves; E87.6 Hypokalemia; F41.9 Anxiety disorder, unspecified; M17.11 Unilateral primary osteoarthritis, right knee; F39 Unspecified mood [affective] disorder; Z88.5 Allergy status to narcotic agent; Z88.8 Allergy status to other drugs, medicaments and biological substances; Z79.899 Other long term (current) drug therapy; Z79.82 Long term (current) use of aspirin; G89.29 Other chronic pain
CPT/HCPCS: 36415; 36416; 71045; 80048; 80053; 80069; 80202; 81003; 81015; 82805; 83605; 83735; 83880; 84550; 85025; 85652; 86140; 87040; 87077; 87149; 87186; 93306; 94640; 96365; 96375; J0696; J1644; J1650; J1885; J1940; J2270; J2543; J3010; J3370; J3475; J3480; J3490; J7050; J7620; Q0162

== ENCOUNTER 2022-09-02 12:04 | Outpatient (CLI) | payer MEDICARE | END 2022-09-02 12:05 | disposition home or self-care (01) | LOC: BICMAMMO 12:04 | PROVIDERS: ATTEND Internal Medicine | DX: Z12.31 Encounter for screening mammogram for malignant neoplasm of breast (principal) | CPT/HCPCS: 77063; 77067 ==

== ENCOUNTER 2023-05-04 17:00 | Outpatient (CLI) | payer MEDICARE | END 2023-05-04 17:01 | disposition home or self-care (01) | LOC: SLEEPLAB 17:00 | PROVIDERS: ATTEND Internal Medicine Critical Care Medicine | DX: G47.33 Obstructive sleep apnea (adult) (pediatric) (principal); R06.83 Snoring; R53.83 Other fatigue | CPT/HCPCS: 95810 ==